=== PATIENT | male | born 1965 ===

== ENCOUNTER 2021-04-30 08:25 | Inpatient (IN) | payer MEDICAID ==
[~2021-04-30] VITALS: Ht 167.6 cm; Wt 121.9 kg
[2021-04-30] MEDS ORDERED: IPRATROPIUM BROM 0.5 MG/2.5ML INH SOL NEB ONE (10:00)
[2021-04-30] MEDS ORDERED: cefTRIAXone SOD 1,000 MG VL IM ONE (10:00)
[2021-04-30] MEDS ORDERED: ALBUTEROL SULF 2.5 MG/0.5ML(0.5%) NEB SOLN NEB ONE (10:00)
[2021-04-30] MEDS ORDERED: methylPREDNISolone SOD SUCC 125 MG/2 ML VL IM ONE (10:00)
[2021-04-30] MEDS ORDERED: cefTRIAXone 1GM/50ML D5W 50 ML IV ONE (11:00)
[2021-04-30] MEDS ORDERED: AZITHROMYCIN 500MG/ 250ML 250 ML IV ONE (11:00)
[2021-04-30] MEDS ORDERED: methylPREDNISolone SOD SUCC 125 MG/2 ML VL IV ONE (11:00)
[2021-04-30] MEDS ORDERED: DexAMETHasone SOD PHOS 10MG/1ML VIAL INJ IV ONE (11:15)
[2021-04-30 11:19] LABS: Basophils # (auto) 0 10 ^3/uL (0-0.2); Basophils % (auto) 0.3 % (0.0-2.0); Eosinophils # (auto) 0 10 ^3/uL (0-0.8); Hematocrit 42.5 % (41.0-53.0); Hemoglobin 14.6 g/dL (13.5-17.5); Lymphocytes # (auto) 1.5 10 ^3/uL (0.4-5.4); Lymphocytes % (auto) 14.6 % (10.0-50.0); Mean Corpuscular Hemoglobin 28.9 pg (28.0-32.0); Mean Corpuscular Hgb Conc. 34.2 g/dL (32.0-36.0); Mean Corpuscular Volume 84.3 fL (80.0-100.0); Monocytes # (auto) 0.7 10 ^3/uL (0-1.3); Monocytes % (auto) 6.5 % (0.0-12.0); Neutrophils # (auto) 8.3 10 ^3/uL (1.6-8.6); Neutrophils % (auto) 78.6 % (37.0-80.0); Red Blood Cells 5.04 10^6/uL (4.5-5.90); Red Cell Distribution Width 13.1 % (11.8-14.3); White Blood Cell 10.6 10^3/uL (4.4-10.8)
[2021-04-30] MEDS ORDERED: IPRATROPIUM BROM 0.5 MG/2.5ML INH SOL NEB PRN (11:30)
[2021-04-30] MEDS ORDERED: ALBUTEROL SULF 2.5 MG/0.5ML(0.5%) NEB SOLN NEB PRN (11:30)
[2021-04-30 11:36] LABS: Albumin 2.4 g/dL (3.4-5.0); Calcium 8.2 mg/dL (8.5-10.1); Potassium 3.6 mmol/L (3.5-5.1)
[2021-04-30 11:39] LABS: BUN/Creatinine Ratio 16.1; Bilirubin, Total 0.8 mg/dL (0.2-1.0); Lactic Acid w/Reflex 2.6 mmol/L (0.4-2.0); Total Protein 7.1 g/dL (6.4-8.2)
[2021-04-30] MEDS: SODIUM CHLORIDE 0.9% 1,000 ML IV SCH (12:20)
[2021-04-30 16:44] VITALS: BP 105/59
[2021-04-30 20:25] VITALS: BP 103/65
[2021-04-30] MEDS: methylPREDNISolone SOD SUCC 40 MG/ML VL IV SCH (21:44)
[2021-04-30] MEDS: BUDESONIDE (INHALATION) 180 MCG IH IN SCH (21:48)
[2021-04-30] MEDS: ALBUTEROL SULF HFA 90MCG INH 200DOSE IN PRN (21:48)
[2021-04-30 22:00] VITALS: BP 103/65
[2021-05-01 05:00] VITALS: BP 116/70
[2021-05-01 05:58] LABS: Basophils # (auto) 0 10 ^3/uL (0-0.2); Basophils % (auto) 0.3 % (0.0-2.0); Eosinophils # (auto) 0 10 ^3/uL (0-0.8); Hematocrit 40.1 % (41.0-53.0); Hemoglobin 13.8 g/dL (13.5-17.5); Lymphocytes # (auto) 0.6 10 ^3/uL (0.4-5.4); Lymphocytes % (auto) 6.4 % (10.0-50.0); Mean Corpuscular Hemoglobin 28.9 pg (28.0-32.0); Mean Corpuscular Hgb Conc. 34.3 g/dL (32.0-36.0); Mean Corpuscular Volume 84.3 fL (80.0-100.0); Monocytes # (auto) 0.5 10 ^3/uL (0-1.3); Monocytes % (auto) 4.7 % (0.0-12.0); Neutrophils # (auto) 8.9 10 ^3/uL (1.6-8.6); Neutrophils % (auto) 88.6 % (37.0-80.0); Red Blood Cells 4.75 10^6/uL (4.5-5.90); White Blood Cell 10.1 10^3/uL (4.4-10.8)
[2021-05-01 06:16] LABS: BUN/Creatinine Ratio 27.4; Calcium 7.9 mg/dL (8.5-10.1)
[2021-05-01] MEDS: SODIUM CHLORIDE 0.9% 1,000 ML IV SCH ×2 (06:44→17:05)
[2021-05-01 09:00] VITALS: BP 113/64
[2021-05-01] MEDS: cefTRIAXone 1GM/50ML D5W 50 ML IV SCH (10:02)
[2021-05-01] MEDS: methylPREDNISolone SOD SUCC 40 MG/ML VL IV SCH ×2 (10:02→22:00)
[2021-05-01] MEDS: ENOXAPARIN SOD 40 MG/0.4 ML SYRINGE SC SCH (10:03)
[2021-05-01] MEDS: ALBUTEROL SULF HFA 90MCG INH 200DOSE IN PRN ×2 (11:50→19:53)
[2021-05-01] MEDS: BUDESONIDE (INHALATION) 180 MCG IH IN SCH ×2 (11:50→19:52)
[2021-05-01] MEDS: AZITHROMYCIN 500MG/ 250ML 250 ML IV SCH (12:04)
[2021-05-01 13:00] VITALS: BP 110/71
[2021-05-01 17:00] VITALS: BP 112/67
[2021-05-02 05:41] VITALS: BP 113/65
[2021-05-02] MEDS: SODIUM CHLORIDE 0.9% 1,000 ML IV SCH ×2 (06:40→20:42)
[2021-05-02] MEDS: ALBUTEROL SULF HFA 90MCG INH 200DOSE IN PRN ×2 (07:43→21:46)
[2021-05-02] MEDS: BUDESONIDE (INHALATION) 180 MCG IH IN SCH ×2 (07:43→21:46)
[2021-05-02 09:00] VITALS: BP 111/59
[2021-05-02] MEDS: methylPREDNISolone SOD SUCC 40 MG/ML VL IV SCH ×2 (09:27→21:40)
[2021-05-02] MEDS: ENOXAPARIN SOD 40 MG/0.4 ML SYRINGE SC SCH (09:27)
[2021-05-02] MEDS: cefTRIAXone 1GM/50ML D5W 50 ML IV SCH (09:27)
[2021-05-02] MEDS: AZITHROMYCIN 500MG/ 250ML 250 ML IV SCH (11:05)
[2021-05-02 13:00] VITALS: BP 122/65
[2021-05-02 17:00] VITALS: BP 121/69
[2021-05-02 20:00] VITALS: BP 115/70
[2021-05-02 22:00] VITALS: BP 115/70
[2021-05-03 05:00] VITALS: BP 130/71
[2021-05-03] MEDS: ALBUTEROL SULF HFA 90MCG INH 200DOSE IN PRN ×2 (05:53→20:27)
[2021-05-03] MEDS: BUDESONIDE (INHALATION) 180 MCG IH IN SCH ×2 (05:53→20:27)
[2021-05-03 07:10] LABS: Potassium 4.3 mmol/L (3.5-5.1)
[2021-05-03 07:21] LABS: Albumin 2.1 g/dL (3.4-5.0); BUN/Creatinine Ratio 30.5; Bilirubin, Total 0.8 mg/dL (0.2-1.0); Calcium 7.8 mg/dL (8.5-10.1); Total Protein 5.9 g/dL (6.4-8.2)
[2021-05-03] MEDS: cefTRIAXone 1GM/50ML D5W 50 ML IV SCH (08:56)
[2021-05-03] MEDS: ENOXAPARIN SOD 40 MG/0.4 ML SYRINGE SC SCH ×2 (08:57→10:00)
[2021-05-03] MEDS: methylPREDNISolone SOD SUCC 40 MG/ML VL IV SCH ×2 (08:57→20:40)
[2021-05-03 09:00] VITALS: BP 114/69
[2021-05-03] MEDS: AZITHROMYCIN 500MG/ 250ML 250 ML IV SCH (10:28)
[2021-05-03] MEDS: SODIUM CHLORIDE 0.9% 1,000 ML IV SCH ×2 (12:06→18:26)
[2021-05-03 12:48] VITALS: BP 127/69
[2021-05-03 17:00] VITALS: BP 121/70
[2021-05-03 22:00] VITALS: BP 143/82
[2021-05-04 05:00] VITALS: BP 126/78
[2021-05-04] MEDS: BUDESONIDE (INHALATION) 180 MCG IH IN SCH ×2 (06:51→22:01)
[2021-05-04] MEDS: ALBUTEROL SULF HFA 90MCG INH 200DOSE IN PRN ×2 (06:51→22:01)
[2021-05-04 08:00] VITALS: BP 132/74
[2021-05-04 08:00] LABS: Basophils # (auto) 0 10 ^3/uL (0-0.2); Basophils % (auto) 0.1 % (0.0-2.0); Eosinophils # (auto) 0 10 ^3/uL (0-0.8); Hematocrit 39.4 % (41.0-53.0); Hemoglobin 13.1 g/dL (13.5-17.5); Lymphocytes # (auto) 0.8 10 ^3/uL (0.4-5.4); Lymphocytes % (auto) 4.4 % (10.0-50.0); Mean Corpuscular Hemoglobin 28.4 pg (28.0-32.0); Mean Corpuscular Hgb Conc. 33.2 g/dL (32.0-36.0); Mean Corpuscular Volume 85.4 fL (80.0-100.0); Monocytes # (auto) 0.8 10 ^3/uL (0-1.3); Monocytes % (auto) 4.5 % (0.0-12.0); Neutrophils # (auto) 16.8 10 ^3/uL (1.6-8.6); Red Blood Cells 4.62 10^6/uL (4.5-5.90); Red Cell Distribution Width 13.5 % (11.8-14.3); White Blood Cell 18.4 10^3/uL (4.4-10.8)
[2021-05-04 09:00] VITALS: BP 132/74
[2021-05-04] MEDS: ENOXAPARIN SOD 40 MG/0.4 ML SYRINGE SC SCH (09:12)
[2021-05-04] MEDS: cefTRIAXone 1GM/50ML D5W 50 ML IV SCH (09:12)
[2021-05-04] MEDS: AZITHROMYCIN 500MG/ 250ML 250 ML IV SCH (09:12)
[2021-05-04] MEDS: methylPREDNISolone SOD SUCC 40 MG/ML VL IV SCH ×2 (09:12→21:07)
[2021-05-04 12:30] VITALS: BP 134/59
[2021-05-04] MEDS ORDERED: ACETAMINOPHEN 325 MG TAB PO PRN (14:45)
[2021-05-04 17:00] VITALS: BP 131/70
[2021-05-04] MEDS: SODIUM CHLORIDE 0.9% 1,000 ML IV SCH (18:19)
[2021-05-04 22:00] VITALS: BP 137/70
[2021-05-05 04:54] VITALS: BP 128/75
[2021-05-05] MEDS: SODIUM CHLORIDE 0.9% 1,000 ML IV SCH ×2 (05:54→20:12)
[2021-05-05] MEDS: BUDESONIDE (INHALATION) 180 MCG IH IN SCH ×2 (05:59→20:29)
[2021-05-05] MEDS: ALBUTEROL SULF HFA 90MCG INH 200DOSE IN PRN ×2 (05:59→20:30)
[2021-05-05 07:11] LABS: Basophils # (auto) 0 10 ^3/uL (0-0.2); Basophils % (auto) 0.2 % (0.0-2.0); Eosinophils # (auto) 0 10 ^3/uL (0-0.8); Hematocrit 42.3 % (41.0-53.0); Lymphocytes # (auto) 0.5 10 ^3/uL (0.4-5.4); Lymphocytes % (auto) 2.9 % (10.0-50.0); Mean Corpuscular Hemoglobin 28.5 pg (28.0-32.0); Mean Corpuscular Hgb Conc. 33.2 g/dL (32.0-36.0); Monocytes # (auto) 0.5 10 ^3/uL (0-1.3); Neutrophils # (auto) 17.1 10 ^3/uL (1.6-8.6); Neutrophils % (auto) 93.9 % (37.0-80.0); Red Blood Cells 4.92 10^6/uL (4.5-5.90); Red Cell Distribution Width 13.5 % (11.8-14.3); White Blood Cell 18.2 10^3/uL (4.4-10.8)
[2021-05-05 09:00] VITALS: BP 128/68
[2021-05-05] MEDS: cefTRIAXone 1GM/50ML D5W 50 ML IV SCH (09:46)
[2021-05-05] MEDS: ENOXAPARIN SOD 40 MG/0.4 ML SYRINGE SC SCH (09:47)
[2021-05-05] MEDS: methylPREDNISolone SOD SUCC 40 MG/ML VL IV SCH ×2 (09:47→21:59)
[2021-05-05] MEDS: AZITHROMYCIN 500MG/ 250ML 250 ML IV SCH (10:58)
[2021-05-05 13:00] VITALS: BP 138/71
[2021-05-05 17:00] VITALS: BP 128/79
[2021-05-05 22:00] VITALS: BP 143/81
[2021-05-06 05:00] VITALS: BP 138/85
[2021-05-06] MEDS: ALBUTEROL SULF HFA 90MCG INH 200DOSE IN PRN ×2 (05:56→18:37)
[2021-05-06] MEDS: BUDESONIDE (INHALATION) 180 MCG IH IN SCH ×2 (05:56→18:37)
[2021-05-06 07:17] LABS: Basophils # (auto) 0 10 ^3/uL (0-0.2); Basophils % (auto) 0.1 % (0.0-2.0); Eosinophils # (auto) 0 10 ^3/uL (0-0.8); Hemoglobin 14.1 g/dL (13.5-17.5); Lymphocytes # (auto) 0.5 10 ^3/uL (0.4-5.4); Lymphocytes % (auto) 2.4 % (10.0-50.0); Mean Corpuscular Hemoglobin 28.1 pg (28.0-32.0); Mean Corpuscular Hgb Conc. 32.7 g/dL (32.0-36.0); Mean Corpuscular Volume 85.9 fL (80.0-100.0); Monocytes # (auto) 0.8 10 ^3/uL (0-1.3); Monocytes % (auto) 3.9 % (0.0-12.0); Neutrophils # (auto) 18.4 10 ^3/uL (1.6-8.6); Neutrophils % (auto) 93.6 % (37.0-80.0); Red Blood Cells 5.01 10^6/uL (4.5-5.90); Red Cell Distribution Width 13.6 % (11.8-14.3); White Blood Cell 19.6 10^3/uL (4.4-10.8)
[2021-05-06] MEDS: cefTRIAXone 1GM/50ML D5W 50 ML IV SCH (08:50)
[2021-05-06 08:52] VITALS: BP 134/66
[2021-05-06] MEDS: ENOXAPARIN SOD 40 MG/0.4 ML SYRINGE SC SCH (09:48)
[2021-05-06] MEDS: methylPREDNISolone SOD SUCC 40 MG/ML VL IV SCH (09:48)
[2021-05-06] MEDS ORDERED: REMDESIVIR PER PHARMACY 0 ML IV SCH (10:15)
[2021-05-06 11:04] LABS: Potassium 4.2 mmol/L (3.5-5.1)
[2021-05-06 11:17] VITALS: BP 134/66
[2021-05-06 11:17] LABS: Albumin 1.8 g/dL (3.4-5.0); Bilirubin, Total 1.6 mg/dL (0.2-1.0); Calcium 7.9 mg/dL (8.5-10.1); Total Protein 5.7 g/dL (6.4-8.2)
[2021-05-06] MEDS: AZITHROMYCIN 500MG/ 250ML 250 ML IV SCH (12:16)
[2021-05-06] MEDS: ASCORBIC ACID 1,000 MG TAB PO SCH (12:26)
[2021-05-06] MEDS: ZINC SULFATE 220mg CAP or TAB PO SCH (12:26)
[2021-05-06] MEDS: DexAMETHasone SOD PHOS 10MG/1ML VIAL INJ IV SCH (12:26)
[2021-05-06] MEDS: CHOLECALCIFEROL (VITD3) 2,000 UNIT CAP/TAB PO SCH (12:26)
[2021-05-06] MEDS: guaiFENesin-DM 100/10mg/5ml SYR PO PRN ×2 (12:26→17:58)
[2021-05-06 12:36] VITALS: BP 132/84
[2021-05-06] MEDS ORDERED: REMDESIVIR 200 MG in NS 210ml LOADING DOSE ADULT IV ONE (13:00)
[2021-05-06 16:51] VITALS: BP 122/86
[2021-05-06] MEDS ORDERED: BUDESONIDE (INHALATION) 180 MCG IH IN SCH (22:00)
[2021-05-07 05:29] VITALS: BP 136/87
[2021-05-07 07:02] LABS: Hematocrit 44.2 % (41.0-53.0); Hemoglobin 14.5 g/dL (13.5-17.5); Mean Corpuscular Hemoglobin 28.1 pg (28.0-32.0); Mean Corpuscular Hgb Conc. 32.9 g/dL (32.0-36.0); Mean Corpuscular Volume 85.5 fL (80.0-100.0); Red Blood Cells 5.16 10^6/uL (4.5-5.90); Red Cell Distribution Width 13.5 % (11.8-14.3); White Blood Cell 26.7 10^3/uL (4.4-10.8)
[2021-05-07 07:05] LABS: Basophils % (manual) 0 (0.0-2.0); Blast Cells 0; Eosinophils % (manual) 0 (0-7); Metamyelocytes % 0; Myelocytes % 0; Promyelocytes % 0; Reactive Lymphocytes 0
[2021-05-07 07:16] LABS: Potassium 4.2 mmol/L (3.5-5.1)
[2021-05-07 07:23] LABS: BUN/Creatinine Ratio 41.9; Bilirubin, Total 1.5 mg/dL (0.2-1.0); Calcium 7.9 mg/dL (8.5-10.1); Magnesium 3.4 mg/dL (1.6-2.6); Total Protein 6.1 g/dL (6.4-8.2)
[2021-05-07 07:36] LABS: Thyroid Stimulating Hormone 0.28 uIU/mL (0.358-3.74)
[2021-05-07] MEDS: BUDESONIDE (INHALATION) 180 MCG IH IN SCH ×2 (07:46→20:58)
[2021-05-07] MEDS: ALBUTEROL SULF HFA 90MCG INH 200DOSE IN PRN (07:46)
[2021-05-07 08:08] LABS: Band Neutrophils % (manual) 4; Lymphocytes % (manual) 3 (10.0-50.0); Monocytes % (manual) 5 (0-12)
[2021-05-07 08:39] VITALS: BP 141/89
[2021-05-07] MEDS: CHOLECALCIFEROL (VITD3) 2,000 UNIT CAP/TAB PO SCH (10:01)
[2021-05-07] MEDS: ASCORBIC ACID 1,000 MG TAB PO SCH (10:01)
[2021-05-07] MEDS: ZINC SULFATE 220mg CAP or TAB PO SCH (10:01)
[2021-05-07] MEDS: AZITHROMYCIN 500MG/ 250ML 250 ML IV SCH (10:01)
[2021-05-07] MEDS: cefTRIAXone 1GM/50ML D5W 50 ML IV SCH (10:01)
[2021-05-07] MEDS: DexAMETHasone SOD PHOS 10MG/1ML VIAL INJ IV SCH (10:01)
[2021-05-07] MEDS: guaiFENesin-DM 100/10mg/5ml SYR PO PRN ×3 (10:02→21:56)
[2021-05-07] MEDS: ENOXAPARIN SOD 40 MG/0.4 ML SYRINGE SC SCH (10:02)
[2021-05-07 13:00] VITALS: BP 123/76
[2021-05-07] MEDS: REMDESIVIR 100mg 100 MG in SODIUM CHL 0.9% 230 ML IV SCH (16:54)
[2021-05-07 16:58] VITALS: BP 125/70
[2021-05-07 22:00] VITALS: BP 118/73
[2021-05-08 05:00] VITALS: BP 128/69
[2021-05-08 07:20] LABS: Hematocrit 43.1 % (41.0-53.0); Hemoglobin 14.4 g/dL (13.5-17.5); Mean Corpuscular Hemoglobin 28.5 pg (28.0-32.0); Mean Corpuscular Hgb Conc. 33.3 g/dL (32.0-36.0); Mean Corpuscular Volume 85.7 fL (80.0-100.0); Red Blood Cells 5.03 10^6/uL (4.5-5.90); Red Cell Distribution Width 13.5 % (11.8-14.3); White Blood Cell 26.4 10^3/uL (4.4-10.8)
[2021-05-08 07:29] LABS: Basophils % (manual) 0 (0.0-2.0); Blast Cells 0; Eosinophils % (manual) 0 (0-7); Metamyelocytes % 0; Myelocytes % 0; Promyelocytes % 0; Reactive Lymphocytes 0
[2021-05-08 09:00] VITALS: BP 105/69
[2021-05-08] MEDS: DexAMETHasone SOD PHOS 10MG/1ML VIAL INJ IV SCH (09:20)
[2021-05-08] MEDS: cefTRIAXone 1GM/50ML D5W 50 ML IV SCH (09:20)
[2021-05-08] MEDS: AZITHROMYCIN 500MG/ 250ML 250 ML IV SCH (09:21)
[2021-05-08] MEDS: ASCORBIC ACID 1,000 MG TAB PO SCH (09:21)
[2021-05-08] MEDS: CHOLECALCIFEROL (VITD3) 2,000 UNIT CAP/TAB PO SCH (09:21)
[2021-05-08] MEDS: ZINC SULFATE 220mg CAP or TAB PO SCH (09:21)
[2021-05-08] MEDS: ENOXAPARIN SOD 40 MG/0.4 ML SYRINGE SC SCH (09:22)
[2021-05-08] MEDS: guaiFENesin-DM 100/10mg/5ml SYR PO PRN ×3 (09:22→20:11)
[2021-05-08] MEDS: ALBUTEROL SULF HFA 90MCG INH 200DOSE IN PRN ×2 (10:13→22:42)
[2021-05-08] MEDS: BUDESONIDE (INHALATION) 180 MCG IH IN SCH ×2 (10:13→22:42)
[2021-05-08 10:58] LABS: Band Neutrophils % (manual) 3; Lymphocytes % (manual) 5 (10.0-50.0); Monocytes % (manual) 4 (0-12)
[2021-05-08 13:00] VITALS: BP 106/66
[2021-05-08] MEDS: REMDESIVIR 100mg 100 MG in SODIUM CHL 0.9% 230 ML IV SCH (13:26)
[2021-05-08 17:00] VITALS: BP 108/73
[2021-05-08 22:00] VITALS: BP 105/75
[2021-05-09 05:00] VITALS: BP 117/60
[2021-05-09] MEDS: guaiFENesin-DM 100/10mg/5ml SYR PO PRN ×2 (05:36→12:21)
[2021-05-09 05:50] LABS: Basophils # (auto) 0.3 10 ^3/uL (0-0.2); Eosinophils # (auto) 0 10 ^3/uL (0-0.8); Eosinophils % (auto) 0.2 % (0.0-7.0); Hematocrit 43.4 % (41.0-53.0); Hemoglobin 14.3 g/dL (13.5-17.5); Lymphocytes # (auto) 0.9 10 ^3/uL (0.4-5.4); Lymphocytes % (auto) 3.1 % (10.0-50.0); Mean Corpuscular Hemoglobin 28.6 pg (28.0-32.0); Mean Corpuscular Volume 86.7 fL (80.0-100.0); Monocytes # (auto) 0.9 10 ^3/uL (0-1.3); Monocytes % (auto) 3.3 % (0.0-12.0); Neutrophils # (auto) 25.8 10 ^3/uL (1.6-8.6); Neutrophils % (auto) 92.4 % (37.0-80.0); Nucleated Red Blood Cells % 0.1 %; Red Blood Cells 5.01 10^6/uL (4.5-5.90); Red Cell Distribution Width 13.8 % (11.8-14.3)
[2021-05-09] MEDS: BUDESONIDE (INHALATION) 180 MCG IH IN SCH ×2 (07:13→23:24)
[2021-05-09] MEDS: ALBUTEROL SULF HFA 90MCG INH 200DOSE IN PRN (07:13)
[2021-05-09 09:00] VITALS: BP 130/71
[2021-05-09] MEDS: cefTRIAXone 1GM/50ML D5W 50 ML IV SCH (11:20)
[2021-05-09] MEDS: ENOXAPARIN SOD 40 MG/0.4 ML SYRINGE SC SCH (11:22)
[2021-05-09] MEDS: DexAMETHasone SOD PHOS 10MG/1ML VIAL INJ IV SCH (11:22)
[2021-05-09] MEDS: ASCORBIC ACID 1,000 MG TAB PO SCH (11:22)
[2021-05-09] MEDS: CHOLECALCIFEROL (VITD3) 2,000 UNIT CAP/TAB PO SCH (11:23)
[2021-05-09] MEDS: ZINC SULFATE 220mg CAP or TAB PO SCH (11:23)
[2021-05-09] MEDS: METOPROLOL TARTRATE 1MG/1ML-5ML VIAL IV PRN ×2 (11:26→20:10)
[2021-05-09] MEDS ORDERED: METOPROLOL TARTRATE 1MG/1ML-5ML VIAL IV ONE (12:00)
[2021-05-09] MEDS: AZITHROMYCIN 500MG/ 250ML 250 ML IV SCH (12:28)
[2021-05-09 12:48] VITALS: BP 128/72
[2021-05-09] MEDS: REMDESIVIR 100mg 100 MG in SODIUM CHL 0.9% 230 ML IV SCH (14:53)
[2021-05-09 16:00] VITALS: BP 94/59
[2021-05-09] MEDS: SALINE 0.65 % NASAL SPRAY 45ML BOTTLE EACHNOSTRI SCH ×2 (18:06→22:35)
[2021-05-09] MEDS ORDERED: SUCCINYLCHOLINE CHLORIDE 20 MG/ML 10ML VIAL IV ONE (21:13)
[2021-05-09] MEDS ORDERED: ETOMIDATE (2MG/ML) 20ML VIAL IV ONE (21:13)
[2021-05-09 22:14] VITALS: BP 97/70
[2021-05-10 05:00] VITALS: BP 101/77
[2021-05-10] MEDS: METOPROLOL TARTRATE 1MG/1ML-5ML VIAL IV PRN (06:17)
[2021-05-10] MEDS: SALINE 0.65 % NASAL SPRAY 45ML BOTTLE EACHNOSTRI SCH ×4 (06:17→21:44)
[2021-05-10 08:22] LABS: Albumin 1.5 g/dL (3.4-5.0); Anion Gap 14 (5-15); Blood Urea Nitrogen 38 mg/dL (7-18); Calcium 7.6 mg/dL (8.5-10.1); Carbon Dioxide 20 mmol/L (21-32); Chloride 108 mmol/L (98-107); Glucose 96 mg/dL (74-106); Potassium 4.5 mmol/L (3.5-5.1); Sodium 142 mmol/L (136-145)
[2021-05-10 08:26] LABS: Alanine Aminotransferase 71 U/L (16-61); Alkaline Phosphatase 147 U/L (45-117); Aspartate Aminotransferase 70 U/L (15-37); BUN/Creatinine Ratio 48.7; Bilirubin, Total 1.2 mg/dL (0.2-1.0); GFR African American 132 mL/min; GFR Non-African American 109 mL/min; Total Protein 5.2 g/dL (6.4-8.2)
[2021-05-10 09:00] VITALS: BP 109/72
[2021-05-10] MEDS: CHOLECALCIFEROL (VITD3) 2,000 UNIT CAP/TAB PO SCH (10:00)
[2021-05-10] MEDS: cefTRIAXone 1GM/50ML D5W 50 ML IV SCH (10:39)
[2021-05-10] MEDS: DexAMETHasone SOD PHOS 10MG/1ML VIAL INJ IV SCH (10:39)
[2021-05-10] MEDS: AZITHROMYCIN 500MG/ 250ML 250 ML IV SCH (10:40)
[2021-05-10] MEDS: ENOXAPARIN SOD 40 MG/0.4 ML SYRINGE SC SCH (10:40)
[2021-05-10] MEDS: ASCORBIC ACID 1,000 MG TAB PO SCH (10:54)
[2021-05-10] MEDS: ZINC SULFATE 220mg CAP or TAB PO SCH (10:54)
[2021-05-10] MEDS: BUDESONIDE (INHALATION) 180 MCG IH IN SCH ×2 (15:14→21:53)
[2021-05-10] MEDS: ALBUTEROL SULF HFA 90MCG INH 200DOSE IN PRN ×2 (15:15→21:53)
[2021-05-10] MEDS: REMDESIVIR 100mg 100 MG in SODIUM CHL 0.9% 230 ML IV SCH (15:42)
[2021-05-10 16:24] VITALS: BP 101/68
[2021-05-10 22:00] VITALS: BP 96/59
[2021-05-10 22:40] VITALS: BP 121/60
[2021-05-10 23:08] LABS: Basophils # (auto) 0.1 10 ^3/uL (0-0.2); Basophils % (auto) 0.2 % (0.0-2.0); Eosinophils # (auto) 0 10 ^3/uL (0-0.8); Hematocrit 44.1 % (41.0-53.0); Hemoglobin 14.1 g/dL (13.5-17.5); Lymphocytes # (auto) 0.5 10 ^3/uL (0.4-5.4); Lymphocytes % (auto) 1.7 % (10.0-50.0); Mean Corpuscular Hemoglobin 27.7 pg (28.0-32.0); Mean Corpuscular Volume 86.5 fL (80.0-100.0); Monocytes # (auto) 0.7 10 ^3/uL (0-1.3); Monocytes % (auto) 2.7 % (0.0-12.0); Neutrophils # (auto) 24.8 10 ^3/uL (1.6-8.6); Neutrophils % (auto) 95.4 % (37.0-80.0); Red Cell Distribution Width 13.6 % (11.8-14.3)
[2021-05-11] VITALS (9 sets, daily range): BP systolic 100–139; BP diastolic 53–70
[2021-05-11] MEDS: METOPROLOL TARTRATE 1MG/1ML-5ML VIAL IV PRN (05:24)
[2021-05-11] MEDS: SALINE 0.65 % NASAL SPRAY 45ML BOTTLE EACHNOSTRI SCH ×4 (06:27→22:00)
[2021-05-11] MEDS: ALBUTEROL SULF HFA 90MCG INH 200DOSE IN PRN ×2 (08:32→21:05)
[2021-05-11] MEDS: BUDESONIDE (INHALATION) 180 MCG IH IN SCH ×2 (08:33→21:04)
[2021-05-11] MEDS: AZITHROMYCIN 500MG/ 250ML 250 ML IV SCH (09:05)
[2021-05-11] MEDS: cefTRIAXone 1GM/50ML D5W 50 ML IV SCH (09:05)
[2021-05-11] MEDS: CHOLECALCIFEROL (VITD3) 2,000 UNIT CAP/TAB PO SCH (09:06)
[2021-05-11] MEDS: ASCORBIC ACID 1,000 MG TAB PO SCH (09:06)
[2021-05-11] MEDS: ZINC SULFATE 220mg CAP or TAB PO SCH (09:06)
[2021-05-11] MEDS: DexAMETHasone SOD PHOS 10MG/1ML VIAL INJ IV SCH (09:06)
[2021-05-11] MEDS: ENOXAPARIN SOD 40 MG/0.4 ML SYRINGE SC SCH (10:00)
[2021-05-11] MEDS: Ensure HIGH Protein Chocolate 8oz Bottle PO SCH (18:15)
[2021-05-12] VITALS (76 sets, daily range): BP systolic 66–164; BP diastolic 26–74
[2021-05-12] MEDS ORDERED: SUCCINYLCHOLINE CHLORIDE 20 MG/ML 10ML VIAL IV ONE ×2 (05:33→06:30)
[2021-05-12] MEDS ORDERED: ETOMIDATE (2MG/ML) 20ML VIAL IV ONE ×2 (05:33→06:30)
[2021-05-12] MEDS ORDERED: MIDAZOLAM DRIP 50 mg/50mL 50 ML IV ONE ×2 (05:49→06:13)
[2021-05-12] MEDS: MIDAZOLAM DRIP 50 mg/50mL 50 ML IV SCH ×3 (06:15→19:01)
[2021-05-12] MEDS ORDERED: fentaNYL Drip 2500mCg/250mlNS 250 ML IV ONE (06:22)
[2021-05-12] MEDS: fentaNYL Drip 2500mCg/250mlNS 250 ML IV SCH ×2 (06:30→14:39)
[2021-05-12] MEDS ORDERED: NOREPINEPHRINE 8 MG/250ML KIT 250 ML IV ONE (06:31)
[2021-05-12] MEDS ORDERED: PROPOFOL 100 ML IV ONE (06:57)
[2021-05-12] MEDS: PROPOFOL 100 ML IV SCH ×3 (07:00→17:14)
[2021-05-12] MEDS: PHENYLEPHRINE INJ 80 MG in SODIUM CHL 0.9% 242 ML IV SCH ×2 (07:30→13:14)
[2021-05-12] MEDS: Ensure HIGH Protein Chocolate 8oz Bottle PO SCH ×3 (08:00→17:13)
[2021-05-12] MEDS: VASOPRESSIN 50 UNITS in D5W 5% 247.5 ML IV SCH (08:30)
[2021-05-12] MEDS ORDERED: SODIUM BICARBONATE 8.4% INJ 50ML SYRINGE ONE (08:33)
[2021-05-12] MEDS ORDERED: SODIUM BICARBONATE 8.4 % INJ 50ML VIAL IV ONE ×3 (08:45→11:00)
[2021-05-12] MEDS: cefTRIAXone 1GM/50ML D5W 50 ML IV SCH (08:46)
[2021-05-12] MEDS ORDERED: ROCURONIUM 10MG/ML 10ML VIAL IV ONE (09:00)
[2021-05-12] MEDS: ROCURONIUM 10MG/ML 10ML VIAL IV PRN (09:55)
[2021-05-12] MEDS: ATRACURIUM BESYLATE 1,000 MG in D5W 5% 150 ML IV SCH (09:55)
[2021-05-12] MEDS: ACETAMINOPHEN 650 mg PER 20.3 mL UD GT PRN (09:57)
[2021-05-12] MEDS: AZITHROMYCIN 500MG/ 250ML 250 ML IV SCH (09:58)
[2021-05-12] MEDS: ASCORBIC ACID 1,000 MG TAB PO SCH (09:58)
[2021-05-12] MEDS: DexAMETHasone SOD PHOS 10MG/1ML VIAL INJ IV SCH (09:58)
[2021-05-12] MEDS: ZINC SULFATE 220mg CAP or TAB PO SCH (09:58)
[2021-05-12] MEDS: ENOXAPARIN SOD 80 MG/0.8ML SYRINGE SC SCH ×2 (09:59→22:00)
[2021-05-12] MEDS: CHOLECALCIFEROL (VITD3) 2,000 UNIT CAP/TAB PO SCH (09:59)
[2021-05-12] MEDS: BUDESONIDE (INHALATION) 0.5 MG/2 ML NEB NEB SCH ×2 (10:28→22:10)
[2021-05-12] MEDS: NOREPINEPHRINE 8 MG/250ML KIT 250 ML IV SCH (10:59)
[2021-05-12] MEDS: ALBUTEROL SULF 2.5 MG/0.5ML(0.5%) NEB SOLN NEB PRN ×2 (11:08→22:10)
[2021-05-12] MEDS: SALINE 0.65 % NASAL SPRAY 45ML BOTTLE EACHNOSTRI SCH ×3 (11:24→22:00)
[2021-05-12] MEDS ORDERED: VANCOMYCIN PER PHARMACY 0 MG IV SCH (12:30)
[2021-05-12] MEDS: EPINEPHrine HCL 250 ML IV SCH (12:30)
[2021-05-12] MEDS: VANCOMYCIN 1GM/250ML 250 ML IV SCH ×2 (13:33→22:00)
[2021-05-12] MEDS ORDERED: ALBUTEROL SULF 2.5 MG/0.5ML(0.5%) NEB SOLN NEB SCH (14:00)
[2021-05-12] MEDS: SODIUM CHLORIDE 0.9% 1,000 ML IV SCH (15:49)
[2021-05-12] MEDS: PIPERACILLIN-TAZOB 3.375GM 100 ML IV SCH (17:14)
[2021-05-13] VITALS (74 sets, daily range): BP systolic 61–177; BP diastolic 28–96
[2021-05-13] MEDS: SODIUM CHLORIDE 0.9% 1,000 ML IV SCH ×2 (04:15→15:19)
[2021-05-13] MEDS: PIPERACILLIN-TAZOB 3.375GM 100 ML IV SCH ×2 (06:00)
[2021-05-13] MEDS: SALINE 0.65 % NASAL SPRAY 45ML BOTTLE EACHNOSTRI SCH ×2 (06:00→12:00)
[2021-05-13] MEDS: ALBUTEROL SULF 2.5 MG/0.5ML(0.5%) NEB SOLN NEB PRN ×2 (06:46→19:29)
[2021-05-13] MEDS: BUDESONIDE (INHALATION) 0.5 MG/2 ML NEB NEB SCH ×2 (06:46→19:29)
[2021-05-13] MEDS: ACETAMINOPHEN 650 mg PER 20.3 mL UD GT PRN ×2 (07:36→16:40)
[2021-05-13] MEDS: VANCOMYCIN 1GM/250ML 250 ML IV SCH (07:40)
[2021-05-13] MEDS: MIDAZOLAM DRIP 50 mg/50mL 50 ML IV SCH ×3 (07:52→14:57)
[2021-05-13] MEDS: Ensure HIGH Protein Chocolate 8oz Bottle PO SCH ×2 (08:00→12:00)
[2021-05-13] MEDS: VASOPRESSIN 50 UNITS in D5W 5% 247.5 ML IV SCH (08:30)
[2021-05-13] MEDS: ATRACURIUM BESYLATE 1,000 MG in D5W 5% 150 ML IV SCH (09:00)
[2021-05-13] MEDS: PROPOFOL 100 ML IV SCH ×2 (09:14→14:44)
[2021-05-13 09:24] LABS: Sodium 144 mmol/L (136-145)
[2021-05-13 09:25] LABS: Anion Gap 11 (5-15); BUN/Creatinine Ratio 27.4; Blood Urea Nitrogen 54 mg/dL (7-18); Calcium 7.2 mg/dL (8.5-10.1); Carbon Dioxide 24 mmol/L (21-32); Chloride 109 mmol/L (98-107); GFR African American 45 mL/min; GFR Non-African American 37 mL/min; Glucose 214 mg/dL (74-106)
[2021-05-13 09:28] LABS: Hemoglobin 13.2 g/dL (13.5-17.5)
[2021-05-13 09:33] LABS: Hematocrit 41.8 % (41.0-53.0); Mean Corpuscular Hemoglobin 27.9 pg (28.0-32.0); Mean Corpuscular Hgb Conc. 31.6 g/dL (32.0-36.0); Mean Corpuscular Volume 88.4 fL (80.0-100.0); Red Blood Cells 4.73 10^6/uL (4.5-5.90); Red Cell Distribution Width 13.6 % (11.8-14.3)
[2021-05-13 09:45] LABS: Potassium 5.6 mmol/L (3.5-5.1)
[2021-05-13 09:54] LABS: White Blood Cell 46.3 10^3/uL (4.4-10.8)
[2021-05-13 09:56] LABS: Basophils % (manual) 0 (0.0-2.0); Blast Cells 0; Eosinophils % (manual) 0 (0-7); Metamyelocytes % 0; Myelocytes % 0; Promyelocytes % 0; Reactive Lymphocytes 0
[2021-05-13] MEDS: ASCORBIC ACID 1,000 MG TAB PO SCH (10:00)
[2021-05-13] MEDS ORDERED: SODIUM ZIRCONIUM CYCL 10 GM PAK PO ONE (10:15)
[2021-05-13] MEDS ORDERED: DEXTROSE (50%) 50ML SYRG IV ONE (10:15)
[2021-05-13] MEDS ORDERED: InsuLIN REG 1unit/0.01ml Soln (100units/ml) IV ONE (10:15)
[2021-05-13] MEDS: MEROPENEM 1GM IVPB 100 ML IV SCH (10:40)
[2021-05-13] MEDS: DexAMETHasone SOD PHOS 10MG/1ML VIAL INJ IV SCH (10:41)
[2021-05-13] MEDS: ZINC SULFATE 220mg CAP or TAB PO SCH (10:41)
[2021-05-13] MEDS: ENOXAPARIN SOD 80 MG/0.8ML SYRINGE SC SCH (10:42)
[2021-05-13 11:10] LABS: Band Neutrophils % (manual) 1; Lymphocytes % (manual) 2 (10.0-50.0); Monocytes % (manual) 4 (0-12)
[2021-05-13] MEDS: NOREPINEPHRINE 8 MG/250ML KIT 250 ML IV SCH ×2 (11:30→16:08)
[2021-05-13] MEDS: PHENYLEPHRINE INJ 80 MG in SODIUM CHL 0.9% 242 ML IV SCH (12:26)
[2021-05-13] MEDS: EPINEPHrine HCL 250 ML IV SCH (12:30)
[2021-05-13] MEDS: fentaNYL Drip 2500mCg/250mlNS 250 ML IV SCH (15:18)
[2021-05-13] MEDS ORDERED: PANTOPRAZOLE 40 MG TAB PO ONE (15:45)
[2021-05-13] MEDS ORDERED: PANTOPRAZOLE 40 MG/10 ML VIAL INJ IV ONE (16:00)
[2021-05-14] VITALS (69 sets, daily range): BP systolic 60–154; BP diastolic 29–86
[2021-05-14] MEDS: BUDESONIDE (INHALATION) 0.5 MG/2 ML NEB NEB SCH ×2 (06:37→22:29)
[2021-05-14] MEDS: ALBUTEROL SULF 2.5 MG/0.5ML(0.5%) NEB SOLN NEB PRN ×2 (06:37→22:29)
[2021-05-14] MEDS: MIDAZOLAM DRIP 50 mg/50mL 50 ML IV SCH ×3 (07:31→14:48)
[2021-05-14] MEDS: PHENYLEPHRINE INJ 80 MG in SODIUM CHL 0.9% 242 ML IV SCH (07:44)
[2021-05-14] MEDS: VASOPRESSIN 50 UNITS in D5W 5% 247.5 ML IV SCH (08:30)
[2021-05-14] MEDS: ATRACURIUM BESYLATE 1,000 MG in D5W 5% 150 ML IV SCH (09:00)
[2021-05-14] MEDS ORDERED: PANTOPRAZOLE 40 MG TAB PO SCH (10:00)
[2021-05-14] MEDS: CHOLECALCIFEROL (VITD3) 2,000 UNIT CAP/TAB PO SCH ×2 (10:00→10:31)
[2021-05-14] MEDS: DexAMETHasone SOD PHOS 10MG/1ML VIAL INJ IV SCH (10:28)
[2021-05-14] MEDS: ZINC SULFATE 220mg CAP or TAB PO SCH (10:29)
[2021-05-14] MEDS: PANTOPRAZOLE 40 MG/10 ML VIAL INJ IV SCH (10:29)
[2021-05-14] MEDS: ASCORBIC ACID 1,000 MG TAB PO SCH (10:31)
[2021-05-14 11:02] LABS: BUN/Creatinine Ratio 25.3; Calcium 7.1 mg/dL (8.5-10.1); Potassium 4.9 mmol/L (3.5-5.1)
[2021-05-14] MEDS ORDERED: DEXTROSE (50%) 50ML SYRG IV PRN (12:15)
[2021-05-14] MEDS: MEROPENEM 1GM IVPB 100 ML IV SCH ×3 (12:28→23:14)
[2021-05-14] MEDS: EPINEPHrine HCL 250 ML IV SCH (12:30)
[2021-05-14] MEDS: InsuLIN REG 1unit/0.01ml Soln (100units/ml) SC SCH ×3 (12:46→23:21)
[2021-05-14] MEDS: fentaNYL Drip 2500mCg/250mlNS 250 ML IV SCH (14:45)
[2021-05-14] MEDS: NOREPINEPHRINE BITARTRATE 16 MG in SODIUM CHL 0.9% 234 ML IV SCH (15:00)
[2021-05-14] MEDS: VANCOMYCIN 1GM/250ML 250 ML IV SCH (16:07)
[2021-05-14] MEDS: SOD CHL 0.45% 1,000 ML IV SCH ×2 (16:15→20:45)
[2021-05-14] MEDS: ACETAMINOPHEN 650 mg PER 20.3 mL UD GT PRN ×2 (16:32→16:35)
[2021-05-14] MEDS: ACCU-CHEK COMFORT CURVE STRIP VI SCH ×2 (17:51→23:21)
[2021-05-14] MEDS: DOPamine 1600MCG/ML D5W 250 ML IV SCH (18:14)
[2021-05-14] MEDS: PROPOFOL 100 ML IV SCH (19:03)
[2021-05-14 19:34] LABS: Hematocrit 35.7 % (41.0-53.0); Hemoglobin 11.5 g/dL (13.5-17.5); Mean Corpuscular Hgb Conc. 32.2 g/dL (32.0-36.0)
[2021-05-14 19:35] LABS: Mean Corpuscular Hemoglobin 28.3 pg (28.0-32.0); Red Blood Cells 4.06 10^6/uL (4.5-5.90); Red Cell Distribution Width 13.5 % (11.8-14.3)
[2021-05-14 19:47] LABS: White Blood Cell 33.4 10^3/uL (4.4-10.8)
[2021-05-14 19:48] LABS: Basophils % (manual) 0 (0.0-2.0); Blast Cells 0; Eosinophils % (manual) 0 (0-7); Promyelocytes % 0; Reactive Lymphocytes 0
[2021-05-14 21:25] LABS: Band Neutrophils % (manual) 1; Lymphocytes % (manual) 3 (10.0-50.0); Metamyelocytes % 1; Monocytes % (manual) 4 (0-12); Myelocytes % 1
[2021-05-14] MEDS: HEPARIN DRIP/D5W 100UNITS/ML 250 ML IV SCH (22:08)
[2021-05-14 23:39] LABS: Anion Gap 6 (5-15); BUN/Creatinine Ratio 26.8; Blood Urea Nitrogen 45 mg/dL (7-18); Calcium 6.9 mg/dL (8.5-10.1); Carbon Dioxide 22 mmol/L (21-32); Chloride 116 mmol/L (98-107); GFR African American 54 mL/min; GFR Non-African American 45 mL/min; Glucose 194 mg/dL (74-106); Sodium 144 mmol/L (136-145)
[2021-05-14 23:50] LABS: Potassium 5.8 mmol/L (3.5-5.1)
[2021-05-15] VITALS (90 sets, daily range): BP systolic 95–137; BP diastolic 54–92
[2021-05-15 02:15] LABS: Hemoglobin 10.8 g/dL (13.5-17.5)
[2021-05-15 02:17] LABS: Hematocrit 32.6 % (41.0-53.0); Mean Corpuscular Hemoglobin 29.4 pg (28.0-32.0); Mean Corpuscular Hgb Conc. 33.2 g/dL (32.0-36.0); Mean Corpuscular Volume 88.7 fL (80.0-100.0); Red Blood Cells 3.68 10^6/uL (4.5-5.90); Red Cell Distribution Width 13.6 % (11.8-14.3)
[2021-05-15 02:41] LABS: White Blood Cell 31.2 10^3/uL (4.4-10.8)
[2021-05-15 02:43] LABS: Basophils % (manual) 0 (0.0-2.0); Blast Cells 0; Eosinophils % (manual) 0 (0-7); Metamyelocytes % 0; Monocytes % (manual) 0 (0-12); Myelocytes % 0; Promyelocytes % 0; Reactive Lymphocytes 0
[2021-05-15 02:44] LABS: INR 1.13 (0.9-1.15)
[2021-05-15 02:52] LABS: Partial Thromboplastin Time 37.1 sec (23.6-33.0)
[2021-05-15 04:04] LABS: Mean Corpuscular Hgb Conc. 32.3 g/dL (32.0-36.0)
[2021-05-15 04:06] LABS: Hematocrit 32.9 % (41.0-53.0); Hemoglobin 10.6 g/dL (13.5-17.5); Mean Corpuscular Hemoglobin 29.3 pg (28.0-32.0); Mean Corpuscular Volume 90.8 fL (80.0-100.0); Red Blood Cells 3.62 10^6/uL (4.5-5.90); Red Cell Distribution Width 14.2 % (11.8-14.3)
[2021-05-15 04:10] LABS: Band Neutrophils % (manual) 9; Lymphocytes % (manual) 1 (10.0-50.0)
[2021-05-15 04:24] LABS: White Blood Cell 30.4 10^3/uL (4.4-10.8)
[2021-05-15 04:25] LABS: Anion Gap 8 (5-15); Basophils % (manual) 0 (0.0-2.0); Blast Cells 0; Blood Urea Nitrogen 44 mg/dL (7-18); Calcium 7.1 mg/dL (8.5-10.1); Carbon Dioxide 22 mmol/L (21-32); Chloride 116 mmol/L (98-107); Eosinophils % (manual) 0 (0-7); GFR African American 56 mL/min; GFR Non-African American 47 mL/min; Glucose 169 mg/dL (74-106); Metamyelocytes % 0; Myelocytes % 0; Promyelocytes % 0; Reactive Lymphocytes 0; Sodium 146 mmol/L (136-145)
[2021-05-15] MEDS: InsuLIN REG 1unit/0.01ml Soln (100units/ml) SC SCH ×3 (05:51→17:45)
[2021-05-15] MEDS: ACCU-CHEK COMFORT CURVE STRIP VI SCH ×3 (05:51→17:31)
[2021-05-15] MEDS ORDERED: ALBUTEROL SULF 2.5 MG/0.5ML(0.5%) NEB SOLN NEB ONE ×2 (06:30→09:30)
[2021-05-15] MEDS ORDERED: SODIUM ZIRCONIUM CYCL 10 GM PAK PO ONE ×2 (06:30→09:45)
[2021-05-15] MEDS: VASOPRESSIN 50 UNITS in D5W 5% 247.5 ML IV SCH (07:55)
[2021-05-15] MEDS: ATRACURIUM BESYLATE 1,000 MG in D5W 5% 150 ML IV SCH (07:55)
[2021-05-15] MEDS: SOD CHL 0.45% 1,000 ML IV SCH (07:55)
[2021-05-15 07:59] LABS: Band Neutrophils % (manual) 1; Lymphocytes % (manual) 3 (10.0-50.0); Monocytes % (manual) 1 (0-12)
[2021-05-15] MEDS: VANCOMYCIN 1GM/250ML 250 ML IV SCH (08:00)
[2021-05-15 09:34] LABS: INR 1.1 (0.9-1.15); Partial Thromboplastin Time 60.9 sec (23.6-33.0)
[2021-05-15] MEDS: BUDESONIDE (INHALATION) 0.5 MG/2 ML NEB NEB SCH ×2 (10:00→22:34)
[2021-05-15] MEDS: DexAMETHasone SOD PHOS 10MG/1ML VIAL INJ IV SCH (10:24)
[2021-05-15] MEDS: CHOLECALCIFEROL (VITD3) 2,000 UNIT CAP/TAB PO SCH (10:24)
[2021-05-15] MEDS: ZINC SULFATE 220mg CAP or TAB PO SCH (10:24)
[2021-05-15] MEDS: PANTOPRAZOLE 40 MG/10 ML VIAL INJ IV SCH (10:24)
[2021-05-15] MEDS: ASCORBIC ACID 1,000 MG TAB PO SCH (10:24)
[2021-05-15] MEDS: SODIUM BICARBONATE 50ML VIAL 100 ML in SOD CHL 0.45% 1,000 ML IV SCH ×2 (10:30→17:45)
[2021-05-15] MEDS: SODIUM ZIRCONIUM CYCL 10 GM PAK GT SCH ×2 (13:13→17:45)
[2021-05-15] MEDS: NOREPINEPHRINE BITARTRATE 16 MG in SODIUM CHL 0.9% 234 ML IV SCH (13:13)
[2021-05-15] MEDS: EPINEPHrine HCL 250 ML IV SCH (13:19)
[2021-05-15] MEDS: MEROPENEM 1GM IVPB 100 ML IV SCH (13:20)
[2021-05-15] MEDS: HEPARIN DRIP/D5W 100UNITS/ML 250 ML IV SCH ×2 (13:45→16:27)
[2021-05-15] MEDS: DOPamine 1600MCG/ML D5W 250 ML IV SCH (14:51)
[2021-05-15] MEDS: ALBUTEROL SULF 2.5 MG/0.5ML(0.5%) NEB SOLN NEB PRN (15:06)
[2021-05-15 16:03] LABS: INR 1.1 (0.9-1.15)
[2021-05-15 16:11] LABS: Partial Thromboplastin Time 78.7 sec (23.6-33.0)
[2021-05-15 23:22] LABS: INR 1.09 (0.9-1.15); Partial Thromboplastin Time 24.5 sec (23.6-33.0)
[2021-05-16] VITALS (92 sets, daily range): BP systolic 101–132; BP diastolic 51–77
[2021-05-16] MEDS: MEROPENEM 1GM IVPB 100 ML IV SCH ×2 (00:47→12:00)
[2021-05-16] MEDS: InsuLIN REG 1unit/0.01ml Soln (100units/ml) SC SCH ×4 (00:48→18:00)
[2021-05-16] MEDS: ACCU-CHEK COMFORT CURVE STRIP VI SCH ×4 (00:48→18:00)
[2021-05-16 01:49] LABS: INR 1.1 (0.9-1.15); Partial Thromboplastin Time 31.9 sec (23.6-33.0)
[2021-05-16] MEDS ORDERED: HEPARIN SODIUM (PORCINE) 5000 UNITS/ML 1ML VIAL ONE (02:06)
[2021-05-16 02:09] LABS: Anion Gap 7 (5-15); BUN/Creatinine Ratio 34.1; Blood Urea Nitrogen 44 mg/dL (7-18); Calcium 7.1 mg/dL (8.5-10.1); Carbon Dioxide 29 mmol/L (21-32); Chloride 111 mmol/L (98-107); GFR African American 74 mL/min; GFR Non-African American 61 mL/min; Glucose 154 mg/dL (74-106); Sodium 147 mmol/L (136-145)
[2021-05-16] MEDS: HEPARIN DRIP/D5W 100UNITS/ML 250 ML IV SCH ×2 (02:20→07:58)
[2021-05-16] MEDS: VANCOMYCIN 1GM/250ML 250 ML IV SCH ×2 (03:44→21:04)
[2021-05-16] MEDS: SODIUM ZIRCONIUM CYCL 10 GM PAK GT SCH ×4 (06:00→18:00)
[2021-05-16] MEDS: SODIUM BICARBONATE 50ML VIAL 100 ML in SOD CHL 0.45% 1,000 ML IV SCH ×3 (06:13→22:25)
[2021-05-16] MEDS: fentaNYL Drip 2500mCg/250mlNS 250 ML IV SCH (06:30)
[2021-05-16] MEDS: MIDAZOLAM DRIP 50 mg/50mL 50 ML IV SCH ×3 (06:38→18:10)
[2021-05-16] MEDS: PHENYLEPHRINE INJ 80 MG in SODIUM CHL 0.9% 242 ML IV SCH (07:30)
[2021-05-16] MEDS: VASOPRESSIN 50 UNITS in D5W 5% 247.5 ML IV SCH (08:30)
[2021-05-16] MEDS: ATRACURIUM BESYLATE 1,000 MG in D5W 5% 150 ML IV SCH (08:52)
[2021-05-16] MEDS: DexAMETHasone SOD PHOS 10MG/1ML VIAL INJ IV SCH (09:12)
[2021-05-16] MEDS: PANTOPRAZOLE 40 MG/10 ML VIAL INJ IV SCH (09:12)
[2021-05-16] MEDS: ZINC SULFATE 220mg CAP or TAB PO SCH (10:00)
[2021-05-16] MEDS: CHOLECALCIFEROL (VITD3) 2,000 UNIT CAP/TAB PO SCH (10:00)
[2021-05-16] MEDS: ASCORBIC ACID 1,000 MG TAB PO SCH (10:00)
[2021-05-16 11:25] LABS: Partial Thromboplastin Time > 139.0 sec (23.6-33.0)
[2021-05-16] MEDS: NOREPINEPHRINE BITARTRATE 16 MG in SODIUM CHL 0.9% 234 ML IV SCH (11:30)
[2021-05-16] MEDS: EPINEPHrine HCL 250 ML IV SCH (12:30)
[2021-05-16] MEDS: BUDESONIDE (INHALATION) 0.5 MG/2 ML NEB NEB SCH ×2 (13:00→22:28)
[2021-05-16] MEDS: ALBUTEROL SULF 2.5 MG/0.5ML(0.5%) NEB SOLN NEB PRN ×3 (13:00→22:28)
[2021-05-16] MEDS: PROPOFOL 100 ML IV SCH (16:30)
[2021-05-16 19:54] LABS: INR 1.17 (0.9-1.15); Partial Thromboplastin Time 50.1 sec (23.6-33.0)
[2021-05-17] VITALS (99 sets, daily range): BP systolic 93–134; BP diastolic 44–73
[2021-05-17] MEDS: SODIUM ZIRCONIUM CYCL 10 GM PAK GT SCH ×4 (01:00→17:58)
[2021-05-17] MEDS: fentaNYL Drip 2500mCg/250mlNS 250 ML IV SCH (01:03)
[2021-05-17] MEDS: InsuLIN REG 1unit/0.01ml Soln (100units/ml) SC SCH ×5 (01:03→23:29)
[2021-05-17] MEDS: MEROPENEM 1GM IVPB 100 ML IV SCH ×2 (01:15→12:01)
[2021-05-17 02:58] LABS: Hemoglobin 9.1 g/dL (13.5-17.5)
[2021-05-17 03:00] LABS: Hematocrit 27.8 % (41.0-53.0); Mean Corpuscular Hemoglobin 28.4 pg (28.0-32.0); Mean Corpuscular Hgb Conc. 32.7 g/dL (32.0-36.0); Red Blood Cells 3.19 10^6/uL (4.5-5.90); Red Cell Distribution Width 13.2 % (11.8-14.3)
[2021-05-17 03:01] LABS: Basophils % (manual) 0 (0.0-2.0); Blast Cells 0; Eosinophils % (manual) 0 (0-7); Metamyelocytes % 0; Promyelocytes % 0; Reactive Lymphocytes 0
[2021-05-17 03:05] LABS: INR 1.01 (0.9-1.15); Partial Thromboplastin Time 54.7 sec (23.6-33.0)
[2021-05-17 03:08] LABS: BUN/Creatinine Ratio 41.6; Potassium 4.9 mmol/L (3.5-5.1)
[2021-05-17 05:05] LABS: Band Neutrophils % (manual) 1; Myelocytes % 1
[2021-05-17 05:06] LABS: Lymphocytes % (manual) 3 (10.0-50.0); Monocytes % (manual) 5 (0-12)
[2021-05-17] MEDS: ACCU-CHEK COMFORT CURVE STRIP VI SCH ×5 (05:42→23:29)
[2021-05-17] MEDS: BUDESONIDE (INHALATION) 0.5 MG/2 ML NEB NEB SCH ×2 (06:12→22:09)
[2021-05-17] MEDS: ALBUTEROL SULF 2.5 MG/0.5ML(0.5%) NEB SOLN NEB PRN ×2 (06:12→22:09)
[2021-05-17] MEDS: PROPOFOL 100 ML IV SCH ×2 (07:00→12:18)
[2021-05-17] MEDS: PHENYLEPHRINE INJ 80 MG in SODIUM CHL 0.9% 242 ML IV SCH (07:30)
[2021-05-17] MEDS: VASOPRESSIN 50 UNITS in D5W 5% 247.5 ML IV SCH (08:30)
[2021-05-17] MEDS: ATRACURIUM BESYLATE 1,000 MG in D5W 5% 150 ML IV SCH (09:00)
[2021-05-17] MEDS: ASCORBIC ACID 1,000 MG TAB PO SCH (09:48)
[2021-05-17] MEDS: DexAMETHasone SOD PHOS 10MG/1ML VIAL INJ IV SCH (09:48)
[2021-05-17] MEDS: PANTOPRAZOLE 40 MG/10 ML VIAL INJ IV SCH (09:48)
[2021-05-17] MEDS: ZINC SULFATE 220mg CAP or TAB PO SCH (09:48)
[2021-05-17] MEDS: CHOLECALCIFEROL (VITD3) 2,000 UNIT CAP/TAB PO SCH (09:48)
[2021-05-17 10:03] LABS: INR 0.99 (0.9-1.15); Partial Thromboplastin Time 40.1 sec (23.6-33.0)
[2021-05-17] MEDS: NOREPINEPHRINE BITARTRATE 16 MG in SODIUM CHL 0.9% 234 ML IV SCH (11:30)
[2021-05-17] MEDS: MIDAZOLAM DRIP 50 mg/50mL 50 ML IV SCH (12:17)
[2021-05-17] MEDS: EPINEPHrine HCL 250 ML IV SCH (12:30)
[2021-05-17 13:13] LABS: Hepatitis C Antibody Negative (Negative)
[2021-05-17] MEDS ORDERED: FONDAPARINUX SOD 2.5mg/0.5ml SYRINGE SC SCH (14:00)
[2021-05-17] MEDS: VANCOMYCIN 1GM/250ML 250 ML IV SCH (15:00)
[2021-05-17] MEDS ORDERED: FUROSEMIDE 20 MG/2 ML VIAL IV ONE (20:00)
[2021-05-17] MEDS: FONDAPARINUX SOD 2.5mg/0.5ml SYRINGE SC SCH (21:44)
[2021-05-17] MEDS ORDERED: ENOXAPARIN SOD 40 MG/0.4 ML SYRINGE SC SCH (22:00)
[2021-05-18] VITALS (102 sets, daily range): BP systolic 85–136; BP diastolic 45–75
[2021-05-18] MEDS: MEROPENEM 1GM IVPB 100 ML IV SCH ×4 (00:03→23:20)
[2021-05-18] MEDS: fentaNYL Drip 2500mCg/250mlNS 250 ML IV SCH ×2 (01:00→23:29)
[2021-05-18 05:59] LABS: White Blood Cell 28.1 10^3/uL (4.4-10.8)
[2021-05-18] MEDS: InsuLIN REG 1unit/0.01ml Soln (100units/ml) SC SCH ×4 (06:00→23:28)
[2021-05-18 06:01] LABS: Hemoglobin 8.7 g/dL (13.5-17.5); Mean Corpuscular Hemoglobin 28.7 pg (28.0-32.0); Mean Corpuscular Hgb Conc. 32.2 g/dL (32.0-36.0); Red Blood Cells 3.04 10^6/uL (4.5-5.90); Red Cell Distribution Width 13.6 % (11.8-14.3)
[2021-05-18] MEDS: ALBUTEROL SULF 2.5 MG/0.5ML(0.5%) NEB SOLN NEB PRN ×2 (06:08→21:39)
[2021-05-18] MEDS: BUDESONIDE (INHALATION) 0.5 MG/2 ML NEB NEB SCH ×2 (06:08→21:38)
[2021-05-18 06:13] LABS: BUN/Creatinine Ratio 54.2; Calcium 7.2 mg/dL (8.5-10.1); Potassium 4.9 mmol/L (3.5-5.1)
[2021-05-18] MEDS: ACCU-CHEK COMFORT CURVE STRIP VI SCH ×4 (06:20→23:20)
[2021-05-18 06:22] LABS: Basophils % (manual) 0 (0.0-2.0); Blast Cells 0; Eosinophils % (manual) 0 (0-7); Promyelocytes % 0; Reactive Lymphocytes 0
[2021-05-18] MEDS: PHENYLEPHRINE INJ 80 MG in SODIUM CHL 0.9% 242 ML IV SCH (07:30)
[2021-05-18] MEDS: PROPOFOL 100 ML IV SCH ×4 (08:27→23:00)
[2021-05-18] MEDS: VANCOMYCIN 1GM/250ML 250 ML IV SCH (08:28)
[2021-05-18] MEDS: VASOPRESSIN 50 UNITS in D5W 5% 247.5 ML IV SCH (08:30)
[2021-05-18 09:00] LABS: Band Neutrophils % (manual) 6; Lymphocytes % (manual) 1 (10.0-50.0); Metamyelocytes % 1; Monocytes % (manual) 6 (0-12); Myelocytes % 1
[2021-05-18] MEDS: ATRACURIUM BESYLATE 1,000 MG in D5W 5% 150 ML IV SCH (09:00)
[2021-05-18] MEDS: DexAMETHasone SOD PHOS 10MG/1ML VIAL INJ IV SCH (10:16)
[2021-05-18] MEDS: PANTOPRAZOLE 40 MG/10 ML VIAL INJ IV SCH (10:16)
[2021-05-18] MEDS: NOREPINEPHRINE BITARTRATE 16 MG in SODIUM CHL 0.9% 234 ML IV SCH (11:30)
[2021-05-18] MEDS: EPINEPHrine HCL 250 ML IV SCH (12:30)
[2021-05-18] MEDS ORDERED: FUROSEMIDE 40 MG/4 ML VIAL IV ONE (16:15)
[2021-05-18] MEDS: ASCORBIC ACID 1,000 MG TAB PO SCH (17:06)
[2021-05-18] MEDS: ZINC SULFATE 220mg CAP or TAB PO SCH (17:07)
[2021-05-18] MEDS: CHOLECALCIFEROL (VITD3) 2,000 UNIT CAP/TAB PO SCH (17:07)
[2021-05-18] MEDS: MIDAZOLAM DRIP 50 mg/50mL 50 ML IV SCH ×2 (17:08→22:00)
[2021-05-18] MEDS: FONDAPARINUX SOD 2.5mg/0.5ml SYRINGE SC SCH (22:02)
[2021-05-19] VITALS (102 sets, daily range): BP systolic 85–135; BP diastolic 47–81
[2021-05-19] MEDS: VANCOMYCIN 1GM/250ML 250 ML IV SCH ×2 (02:00→21:19)
[2021-05-19 04:44] LABS: Hemoglobin 8.8 g/dL (13.5-17.5); Mean Corpuscular Hemoglobin 28.7 pg (28.0-32.0); Mean Corpuscular Hgb Conc. 32.4 g/dL (32.0-36.0); Mean Corpuscular Volume 88.6 fL (80.0-100.0); Red Blood Cells 3.05 10^6/uL (4.5-5.90); Red Cell Distribution Width 13.7 % (11.8-14.3); White Blood Cell 25.8 10^3/uL (4.4-10.8)
[2021-05-19 05:08] LABS: Basophils % (manual) 0 (0.0-2.0); Blast Cells 0; Eosinophils % (manual) 0 (0-7); Metamyelocytes % 0; Promyelocytes % 0; Reactive Lymphocytes 0
[2021-05-19] MEDS: ACCU-CHEK COMFORT CURVE STRIP VI SCH ×3 (05:43→18:34)
[2021-05-19] MEDS: InsuLIN REG 1unit/0.01ml Soln (100units/ml) SC SCH ×3 (05:43→18:00)
[2021-05-19 07:02] LABS: Band Neutrophils % (manual) 3; Myelocytes % 1
[2021-05-19 07:03] LABS: Lymphocytes % (manual) 4 (10.0-50.0); Monocytes % (manual) 3 (0-12)
[2021-05-19] MEDS: PHENYLEPHRINE INJ 80 MG in SODIUM CHL 0.9% 242 ML IV SCH (07:30)
[2021-05-19] MEDS: VASOPRESSIN 50 UNITS in D5W 5% 247.5 ML IV SCH (07:51)
[2021-05-19] MEDS: ATRACURIUM BESYLATE 1,000 MG in D5W 5% 150 ML IV SCH (07:51)
[2021-05-19] MEDS: BUDESONIDE (INHALATION) 0.5 MG/2 ML NEB NEB SCH ×2 (08:02→19:31)
[2021-05-19] MEDS: ALBUTEROL SULF 2.5 MG/0.5ML(0.5%) NEB SOLN NEB PRN ×4 (08:02→19:31)
[2021-05-19] MEDS: PROPOFOL 100 ML IV SCH ×2 (08:41→15:00)
[2021-05-19] MEDS: PANTOPRAZOLE 40 MG/10 ML VIAL INJ IV SCH (09:48)
[2021-05-19] MEDS: DexAMETHasone SOD PHOS 10MG/1ML VIAL INJ IV SCH (09:48)
[2021-05-19] MEDS: ZINC SULFATE 220mg CAP or TAB PO SCH (09:51)
[2021-05-19] MEDS: CHOLECALCIFEROL (VITD3) 2,000 UNIT CAP/TAB PO SCH (09:51)
[2021-05-19] MEDS: ASCORBIC ACID 1,000 MG TAB PO SCH (09:51)
[2021-05-19] MEDS: MIDAZOLAM DRIP 50 mg/50mL 50 ML IV SCH ×4 (09:57→22:00)
[2021-05-19] MEDS: EPINEPHrine HCL 250 ML IV SCH (12:30)
[2021-05-19] MEDS ORDERED: FUROSEMIDE 40 MG/4 ML VIAL IV ONE (14:00)
[2021-05-19] MEDS: MEROPENEM 1GM IVPB 100 ML IV SCH (14:37)
[2021-05-19] MEDS: NOREPINEPHRINE BITARTRATE 16 MG in SODIUM CHL 0.9% 234 ML IV SCH (14:37)
[2021-05-19] MEDS: fentaNYL Drip 2500mCg/250mlNS 250 ML IV SCH (14:57)
[2021-05-19] MEDS: FONDAPARINUX SOD 2.5mg/0.5ml SYRINGE SC SCH ×2 (21:19→22:00)
[2021-05-20] VITALS (90 sets, daily range): BP systolic 93–123; BP diastolic 50–73
[2021-05-20] MEDS: fentaNYL Drip 2500mCg/250mlNS 250 ML IV SCH ×3 (00:43→12:04)
[2021-05-20] MEDS: InsuLIN REG 1unit/0.01ml Soln (100units/ml) SC SCH ×4 (06:00→18:00)
[2021-05-20] MEDS: ACCU-CHEK COMFORT CURVE STRIP VI SCH ×4 (06:20→18:00)
[2021-05-20] MEDS: BUDESONIDE (INHALATION) 0.5 MG/2 ML NEB NEB SCH ×2 (06:52→22:50)
[2021-05-20] MEDS: ALBUTEROL SULF 2.5 MG/0.5ML(0.5%) NEB SOLN NEB PRN ×2 (06:52→22:50)
[2021-05-20] MEDS: MIDAZOLAM DRIP 50 mg/50mL 50 ML IV SCH ×3 (06:53→17:14)
[2021-05-20] MEDS: PROPOFOL 100 ML IV SCH ×3 (06:54→17:06)
[2021-05-20] MEDS: PHENYLEPHRINE INJ 80 MG in SODIUM CHL 0.9% 242 ML IV SCH (07:30)
[2021-05-20 08:26] LABS: Hemoglobin 8.5 g/dL (13.5-17.5); Mean Corpuscular Hemoglobin 29.4 pg (28.0-32.0); Mean Corpuscular Hgb Conc. 32.7 g/dL (32.0-36.0); Mean Corpuscular Volume 89.9 fL (80.0-100.0); Red Cell Distribution Width 14.2 % (11.8-14.3); White Blood Cell 21.8 10^3/uL (4.4-10.8)
[2021-05-20 08:28] LABS: BUN/Creatinine Ratio 66.2; Calcium 7.5 mg/dL (8.5-10.1); Potassium 4.5 mmol/L (3.5-5.1)
[2021-05-20] MEDS: VASOPRESSIN 50 UNITS in D5W 5% 247.5 ML IV SCH (08:30)
[2021-05-20 08:35] LABS: Basophils % (manual) 0 (0.0-2.0); Blast Cells 0; Metamyelocytes % 0; Myelocytes % 0; Promyelocytes % 0; Reactive Lymphocytes 0
[2021-05-20] MEDS: ATRACURIUM BESYLATE 1,000 MG in D5W 5% 150 ML IV SCH (09:00)
[2021-05-20] MEDS: ASCORBIC ACID 1,000 MG TAB PO SCH (10:19)
[2021-05-20] MEDS: DexAMETHasone SOD PHOS 10MG/1ML VIAL INJ IV SCH (10:19)
[2021-05-20] MEDS: ZINC SULFATE 220mg CAP or TAB PO SCH (10:19)
[2021-05-20] MEDS: CHOLECALCIFEROL (VITD3) 2,000 UNIT CAP/TAB PO SCH (10:19)
[2021-05-20] MEDS: PANTOPRAZOLE 40 MG/10 ML VIAL INJ IV SCH (10:19)
[2021-05-20] MEDS: NOREPINEPHRINE BITARTRATE 16 MG in SODIUM CHL 0.9% 234 ML IV SCH (11:30)
[2021-05-20] MEDS: MEROPENEM 1GM IVPB 100 ML IV SCH ×3 (12:08→23:59)
[2021-05-20] MEDS: EPINEPHrine HCL 250 ML IV SCH (12:11)
[2021-05-20 12:40] LABS: Band Neutrophils % (manual) 3; Eosinophils % (manual) 2 (0-7); Lymphocytes % (manual) 7 (10.0-50.0); Monocytes % (manual) 4 (0-12)
[2021-05-20] MEDS: VANCOMYCIN 1GM/250ML 250 ML IV SCH (15:28)
[2021-05-20] MEDS ORDERED: FUROSEMIDE 40 MG/4 ML VIAL IV ONE (21:45)
[2021-05-21] VITALS (82 sets, daily range): BP systolic 98–150; BP diastolic 49–77
[2021-05-21 02:51] LABS: Hemoglobin 8.3 g/dL (13.5-17.5)
[2021-05-21 02:53] LABS: Mean Corpuscular Hemoglobin 29.7 pg (28.0-32.0); Mean Corpuscular Hgb Conc. 33.2 g/dL (32.0-36.0); Mean Corpuscular Volume 89.4 fL (80.0-100.0); Red Cell Distribution Width 14.1 % (11.8-14.3); White Blood Cell 17.9 10^3/uL (4.4-10.8)
[2021-05-21 03:12] LABS: Albumin 1.4 g/dL (3.4-5.0); Calcium 7.3 mg/dL (8.5-10.1); Potassium 4.3 mmol/L (3.5-5.1)
[2021-05-21 03:15] LABS: BUN/Creatinine Ratio 65.7; Bilirubin, Total 0.6 mg/dL (0.2-1.0); Total Protein 4.4 g/dL (6.4-8.2)
[2021-05-21 03:30] LABS: Basophils % (manual) 0 (0.0-2.0); Blast Cells 0; Metamyelocytes % 0; Promyelocytes % 0; Reactive Lymphocytes 0
[2021-05-21 04:59] LABS: Band Neutrophils % (manual) 2; Eosinophils % (manual) 2 (0-7); Lymphocytes % (manual) 3 (10.0-50.0); Monocytes % (manual) 4 (0-12); Myelocytes % 1
[2021-05-21] MEDS: InsuLIN REG 1unit/0.01ml Soln (100units/ml) SC SCH ×4 (06:00→18:00)
[2021-05-21] MEDS: ACCU-CHEK COMFORT CURVE STRIP VI SCH ×4 (06:00→18:00)
[2021-05-21] MEDS: ALBUTEROL SULF 2.5 MG/0.5ML(0.5%) NEB SOLN NEB PRN (06:29)
[2021-05-21] MEDS: BUDESONIDE (INHALATION) 0.5 MG/2 ML NEB NEB SCH ×2 (06:29→22:17)
[2021-05-21] MEDS: PHENYLEPHRINE INJ 80 MG in SODIUM CHL 0.9% 242 ML IV SCH (07:30)
[2021-05-21] MEDS: VANCOMYCIN 1GM/250ML 250 ML IV SCH (08:00)
[2021-05-21] MEDS: VASOPRESSIN 50 UNITS in D5W 5% 247.5 ML IV SCH (08:30)
[2021-05-21] MEDS: ATRACURIUM BESYLATE 1,000 MG in D5W 5% 150 ML IV SCH (09:00)
[2021-05-21] MEDS: PANTOPRAZOLE 40 MG/10 ML VIAL INJ IV SCH (10:18)
[2021-05-21] MEDS: DexAMETHasone SOD PHOS 10MG/1ML VIAL INJ IV SCH (10:18)
[2021-05-21] MEDS: ZINC SULFATE 220mg CAP or TAB PO SCH (10:20)
[2021-05-21] MEDS: ASCORBIC ACID 1,000 MG TAB PO SCH (10:20)
[2021-05-21] MEDS: CHOLECALCIFEROL (VITD3) 2,000 UNIT CAP/TAB PO SCH (10:20)
[2021-05-21] MEDS: NOREPINEPHRINE BITARTRATE 16 MG in SODIUM CHL 0.9% 234 ML IV SCH (11:30)
[2021-05-21] MEDS: PROPOFOL 100 ML IV SCH ×3 (12:00→20:35)
[2021-05-21] MEDS: MEROPENEM 1GM IVPB 100 ML IV SCH (12:00)
[2021-05-21] MEDS: MIDAZOLAM DRIP 50 mg/50mL 50 ML IV SCH ×4 (12:00→23:53)
[2021-05-21] MEDS: fentaNYL Drip 2500mCg/250mlNS 250 ML IV SCH ×2 (12:00→23:01)
[2021-05-21] MEDS: EPINEPHrine HCL 250 ML IV SCH (12:30)
[2021-05-21] MEDS: MICAFUNGIN SODIUM 100 MG in SODIUM CHL 0.9% 100 ML IV SCH (22:00)
[2021-05-21] MEDS: FONDAPARINUX SOD 2.5mg/0.5ml SYRINGE SC SCH (22:20)
[2021-05-21] MEDS: Jevity 1.2 Cal/Fiber 1 Liter GT SCH (23:52)
[2021-05-22] VITALS (103 sets, daily range): BP systolic 94–141; BP diastolic 49–82
[2021-05-22] MEDS: MEROPENEM 1GM IVPB 100 ML IV SCH ×3 (00:08→23:57)
[2021-05-22] MEDS: ACCU-CHEK COMFORT CURVE STRIP VI SCH ×5 (00:23→23:57)
[2021-05-22] MEDS: VANCOMYCIN 1GM/250ML 250 ML IV SCH ×2 (02:00→20:24)
[2021-05-22] MEDS: MIDAZOLAM DRIP 50 mg/50mL 50 ML IV SCH ×6 (03:08→23:28)
[2021-05-22] MEDS: Jevity 1.2 Cal/Fiber 1 Liter GT SCH (03:09)
[2021-05-22 03:51] LABS: Basophils # (auto) 0 10 ^3/uL (0-0.2); Basophils % (auto) 0.2 % (0.0-2.0); Eosinophils # (auto) 0.3 10 ^3/uL (0-0.8); Eosinophils % (auto) 2.4 % (0.0-7.0); Hemoglobin 8.2 g/dL (13.5-17.5); Lymphocytes # (auto) 0.6 10 ^3/uL (0.4-5.4); Lymphocytes % (auto) 4.6 % (10.0-50.0); Mean Corpuscular Hemoglobin 29.1 pg (28.0-32.0); Mean Corpuscular Hgb Conc. 32.7 g/dL (32.0-36.0); Monocytes # (auto) 0.9 10 ^3/uL (0-1.3); Monocytes % (auto) 6.7 % (0.0-12.0); Neutrophils # (auto) 11.8 10 ^3/uL (1.6-8.6); Neutrophils % (auto) 86.1 % (37.0-80.0); Nucleated Red Blood Cells % 0.1 %; Red Blood Cells 2.81 10^6/uL (4.5-5.90); Red Cell Distribution Width 14.2 % (11.8-14.3); White Blood Cell 13.8 10^3/uL (4.4-10.8)
[2021-05-22 04:12] LABS: Albumin 1.3 g/dL (3.4-5.0); Calcium 7.5 mg/dL (8.5-10.1); Potassium 4.2 mmol/L (3.5-5.1)
[2021-05-22 04:18] LABS: BUN/Creatinine Ratio 72.4; Bilirubin, Total 0.6 mg/dL (0.2-1.0); Total Protein 4.4 g/dL (6.4-8.2)
[2021-05-22] MEDS: InsuLIN REG 1unit/0.01ml Soln (100units/ml) SC SCH ×4 (05:30→18:00)
[2021-05-22] MEDS: PROPOFOL 100 ML IV SCH ×4 (06:25→20:58)
[2021-05-22] MEDS: fentaNYL Drip 2500mCg/250mlNS 250 ML IV SCH ×3 (06:26→22:46)
[2021-05-22] MEDS: PHENYLEPHRINE INJ 80 MG in SODIUM CHL 0.9% 242 ML IV SCH (07:30)
[2021-05-22] MEDS: VASOPRESSIN 50 UNITS in D5W 5% 247.5 ML IV SCH (08:30)
[2021-05-22] MEDS: ATRACURIUM BESYLATE 1,000 MG in D5W 5% 150 ML IV SCH (09:00)
[2021-05-22] MEDS: DexAMETHasone SOD PHOS 10MG/1ML VIAL INJ IV SCH (10:23)
[2021-05-22] MEDS: PANTOPRAZOLE 40 MG/10 ML VIAL INJ IV SCH (10:23)
[2021-05-22] MEDS: ZINC SULFATE 220mg CAP or TAB PO SCH (10:24)
[2021-05-22] MEDS: ASCORBIC ACID 1,000 MG TAB PO SCH (10:24)
[2021-05-22] MEDS: CHOLECALCIFEROL (VITD3) 2,000 UNIT CAP/TAB PO SCH (10:24)
[2021-05-22] MEDS: NOREPINEPHRINE BITARTRATE 16 MG in SODIUM CHL 0.9% 234 ML IV SCH (11:30)
[2021-05-22] MEDS: EPINEPHrine HCL 250 ML IV SCH (12:30)
[2021-05-22] MEDS: BUDESONIDE (INHALATION) 0.5 MG/2 ML NEB NEB SCH ×2 (15:49→18:51)
[2021-05-22] MEDS: ALBUTEROL SULF 2.5 MG/0.5ML(0.5%) NEB SOLN NEB PRN ×2 (15:49→18:51)
[2021-05-22] MEDS: FONDAPARINUX SOD 2.5mg/0.5ml SYRINGE SC SCH (21:39)
[2021-05-22] MEDS: MICAFUNGIN SODIUM 100 MG in SODIUM CHL 0.9% 100 ML IV SCH (21:39)
[2021-05-23] VITALS (84 sets, daily range): BP systolic 94–166; BP diastolic 49–71
[2021-05-23] MEDS: InsuLIN REG 1unit/0.01ml Soln (100units/ml) SC SCH ×4 (00:02→18:17)
[2021-05-23] MEDS: PROPOFOL 100 ML IV SCH ×2 (01:07→14:57)
[2021-05-23] MEDS: MIDAZOLAM DRIP 50 mg/50mL 50 ML IV SCH ×3 (01:07→14:57)
[2021-05-23 04:45] LABS: Eosinophils # (auto) 0.3 10 ^3/uL (0-0.8); Eosinophils % (auto) 2.3 % (0.0-7.0); Hemoglobin 8.4 g/dL (13.5-17.5); Lymphocytes # (auto) 0.6 10 ^3/uL (0.4-5.4); Monocytes # (auto) 0.8 10 ^3/uL (0-1.3); Neutrophils # (auto) 10.2 10 ^3/uL (1.6-8.6); Neutrophils % (auto) 85.3 % (37.0-80.0)
[2021-05-23 04:48] LABS: Basophils # (auto) 0 10 ^3/uL (0-0.2); Basophils % (auto) 0.3 % (0.0-2.0); Hematocrit 25.8 % (41.0-53.0); Lymphocytes % (auto) 5.2 % (10.0-50.0); Mean Corpuscular Hemoglobin 29.1 pg (28.0-32.0); Mean Corpuscular Hgb Conc. 32.6 g/dL (32.0-36.0); Mean Corpuscular Volume 89.4 fL (80.0-100.0); Monocytes % (auto) 6.9 % (0.0-12.0); Nucleated Red Blood Cells % 0.1 %; Red Blood Cells 2.89 10^6/uL (4.5-5.90); Red Cell Distribution Width 14.1 % (11.8-14.3)
[2021-05-23 05:15] LABS: Albumin 1.5 g/dL (3.4-5.0); Potassium 4.4 mmol/L (3.5-5.1)
[2021-05-23 05:21] LABS: BUN/Creatinine Ratio 68.5; Bilirubin, Total 0.6 mg/dL (0.2-1.0); Calcium 7.8 mg/dL (8.5-10.1); Total Protein 4.4 g/dL (6.4-8.2)
[2021-05-23] MEDS: ACCU-CHEK COMFORT CURVE STRIP VI SCH ×3 (06:11→18:08)
[2021-05-23] MEDS: fentaNYL Drip 2500mCg/250mlNS 250 ML IV SCH ×2 (06:15→10:00)
[2021-05-23] MEDS: BUDESONIDE (INHALATION) 0.5 MG/2 ML NEB NEB SCH ×2 (06:28→22:08)
[2021-05-23] MEDS: ALBUTEROL SULF 2.5 MG/0.5ML(0.5%) NEB SOLN NEB PRN ×2 (06:28→22:08)
[2021-05-23] MEDS: PHENYLEPHRINE INJ 80 MG in SODIUM CHL 0.9% 242 ML IV SCH (07:00)
[2021-05-23] MEDS: VASOPRESSIN 50 UNITS in D5W 5% 247.5 ML IV SCH (07:54)
[2021-05-23] MEDS: ATRACURIUM BESYLATE 1,000 MG in D5W 5% 150 ML IV SCH (07:54)
[2021-05-23] MEDS: ZINC SULFATE 220mg CAP or TAB PO SCH (09:06)
[2021-05-23] MEDS: ASCORBIC ACID 1,000 MG TAB PO SCH (09:06)
[2021-05-23] MEDS: DexAMETHasone SOD PHOS 10MG/1ML VIAL INJ IV SCH (09:06)
[2021-05-23] MEDS: CHOLECALCIFEROL (VITD3) 2,000 UNIT CAP/TAB PO SCH (09:06)
[2021-05-23] MEDS: PANTOPRAZOLE 40 MG/10 ML VIAL INJ IV SCH (09:06)
[2021-05-23] MEDS: NOREPINEPHRINE BITARTRATE 16 MG in SODIUM CHL 0.9% 234 ML IV SCH (11:29)
[2021-05-23] MEDS: MEROPENEM 1GM IVPB 100 ML IV SCH (13:00)
[2021-05-23] MEDS: EPINEPHrine HCL 250 ML IV SCH (13:04)
[2021-05-23] MEDS: VANCOMYCIN 1GM/250ML 250 ML IV SCH (15:11)
[2021-05-23] MEDS: FONDAPARINUX SOD 2.5mg/0.5ml SYRINGE SC SCH (21:24)
[2021-05-23] MEDS: MICAFUNGIN SODIUM 100 MG in SODIUM CHL 0.9% 100 ML IV SCH (21:24)
[2021-05-24] VITALS (57 sets, daily range): BP systolic 89–135; BP diastolic 47–78
[2021-05-24 02:16] LABS: Basophils # (auto) 0.1 10 ^3/uL (0-0.2); Basophils % (auto) 0.5 % (0.0-2.0); Eosinophils # (auto) 0.5 10 ^3/uL (0-0.8); Eosinophils % (auto) 4.3 % (0.0-7.0); Hemoglobin 8.2 g/dL (13.5-17.5); Nucleated Red Blood Cells % 0.1 %; White Blood Cell 12.4 10^3/uL (4.4-10.8)
[2021-05-24 02:18] LABS: Hematocrit 25.5 % (41.0-53.0); Lymphocytes # (auto) 0.7 10 ^3/uL (0.4-5.4); Mean Corpuscular Hemoglobin 29.5 pg (28.0-32.0); Mean Corpuscular Hgb Conc. 32.2 g/dL (32.0-36.0); Mean Corpuscular Volume 91.5 fL (80.0-100.0); Monocytes % (auto) 8.3 % (0.0-12.0); Neutrophils % (auto) 80.9 % (37.0-80.0); Red Blood Cells 2.78 10^6/uL (4.5-5.90); Red Cell Distribution Width 15.6 % (11.8-14.3)
[2021-05-24 02:49] LABS: Albumin 1.5 g/dL (3.4-5.0); BUN/Creatinine Ratio 68.5; Calcium 7.6 mg/dL (8.5-10.1); Potassium 4.7 mmol/L (3.5-5.1)
[2021-05-24 02:52] LABS: Bilirubin, Total 0.5 mg/dL (0.2-1.0); Total Protein 4.3 g/dL (6.4-8.2)
[2021-05-24] MEDS: InsuLIN REG 1unit/0.01ml Soln (100units/ml) SC SCH ×5 (05:29→23:55)
[2021-05-24] MEDS: ACCU-CHEK COMFORT CURVE STRIP VI SCH ×5 (05:30→23:55)
[2021-05-24] MEDS: ALBUTEROL SULF 2.5 MG/0.5ML(0.5%) NEB SOLN NEB PRN ×2 (06:18→22:23)
[2021-05-24] MEDS: BUDESONIDE (INHALATION) 0.5 MG/2 ML NEB NEB SCH ×2 (06:18→22:23)
[2021-05-24] MEDS: PHENYLEPHRINE INJ 80 MG in SODIUM CHL 0.9% 242 ML IV SCH (07:30)
[2021-05-24] MEDS: VANCOMYCIN 1GM/250ML 250 ML IV SCH (08:20)
[2021-05-24] MEDS: ATRACURIUM BESYLATE 1,000 MG in D5W 5% 150 ML IV SCH (09:00)
[2021-05-24] MEDS: DexAMETHasone SOD PHOS 10MG/1ML VIAL INJ IV SCH (09:05)
[2021-05-24] MEDS: PANTOPRAZOLE 40 MG/10 ML VIAL INJ IV SCH (09:05)
[2021-05-24] MEDS: ASCORBIC ACID 1,000 MG TAB PO SCH (09:06)
[2021-05-24] MEDS: ZINC SULFATE 220mg CAP or TAB PO SCH (09:06)
[2021-05-24] MEDS: CHOLECALCIFEROL (VITD3) 2,000 UNIT CAP/TAB PO SCH (09:06)
[2021-05-24] MEDS: fentaNYL Drip 2500mCg/250mlNS 250 ML IV SCH ×2 (09:45→13:30)
[2021-05-24] MEDS: PROPOFOL 100 ML IV SCH ×3 (10:28→18:35)
[2021-05-24] MEDS: MIDAZOLAM DRIP 50 mg/50mL 50 ML IV SCH ×3 (10:28→18:30)
[2021-05-24] MEDS: NOREPINEPHRINE BITARTRATE 16 MG in SODIUM CHL 0.9% 234 ML IV SCH (11:30)
[2021-05-24] MEDS: EPINEPHrine HCL 250 ML IV SCH (12:30)
[2021-05-24] MEDS: VASOPRESSIN 50 UNITS in D5W 5% 247.5 ML IV SCH (12:30)
[2021-05-24] MEDS: MEROPENEM 1GM IVPB 100 ML IV SCH ×2 (12:37)
[2021-05-24] MEDS: MICAFUNGIN SODIUM 100 MG in SODIUM CHL 0.9% 100 ML IV SCH (21:09)
[2021-05-24] MEDS: FONDAPARINUX SOD 2.5mg/0.5ml SYRINGE SC SCH (21:09)
[2021-05-25] VITALS (54 sets, daily range): BP systolic 100–128; BP diastolic 37–72
[2021-05-25] MEDS: VANCOMYCIN 1GM/250ML 250 ML IV SCH ×2 (02:00→20:00)
[2021-05-25 02:10] LABS: Basophils # (auto) 0.1 10 ^3/uL (0-0.2); Basophils % (auto) 0.5 % (0.0-2.0); Eosinophils # (auto) 0.4 10 ^3/uL (0-0.8); Hematocrit 27.4 % (41.0-53.0); Hemoglobin 8.8 g/dL (13.5-17.5); Lymphocytes # (auto) 0.8 10 ^3/uL (0.4-5.4); Lymphocytes % (auto) 5.7 % (10.0-50.0); Mean Corpuscular Hemoglobin 29.4 pg (28.0-32.0); Mean Corpuscular Hgb Conc. 31.9 g/dL (32.0-36.0); Mean Corpuscular Volume 92.1 fL (80.0-100.0); Monocytes # (auto) 1.2 10 ^3/uL (0-1.3); Monocytes % (auto) 9.2 % (0.0-12.0); Neutrophils # (auto) 10.9 10 ^3/uL (1.6-8.6); Neutrophils % (auto) 81.6 % (37.0-80.0); Nucleated Red Blood Cells % 0.2 %; Red Blood Cells 2.98 10^6/uL (4.5-5.90); Red Cell Distribution Width 16.3 % (11.8-14.3); White Blood Cell 13.3 10^3/uL (4.4-10.8)
[2021-05-25 02:31] LABS: Albumin 1.7 g/dL (3.4-5.0); Calcium 7.7 mg/dL (8.5-10.1); Potassium 4.8 mmol/L (3.5-5.1)
[2021-05-25 02:34] LABS: Bilirubin, Total 0.5 mg/dL (0.2-1.0); Total Protein 4.7 g/dL (6.4-8.2)
[2021-05-25] MEDS: ACCU-CHEK COMFORT CURVE STRIP VI SCH ×4 (06:00→23:47)
[2021-05-25] MEDS: InsuLIN REG 1unit/0.01ml Soln (100units/ml) SC SCH ×4 (06:00→23:46)
[2021-05-25] MEDS: BUDESONIDE (INHALATION) 0.5 MG/2 ML NEB NEB SCH ×2 (06:14→19:42)
[2021-05-25] MEDS: ALBUTEROL SULF 2.5 MG/0.5ML(0.5%) NEB SOLN NEB PRN ×2 (06:14→19:42)
[2021-05-25] MEDS: PHENYLEPHRINE INJ 80 MG in SODIUM CHL 0.9% 242 ML IV SCH (07:30)
[2021-05-25] MEDS: VASOPRESSIN 50 UNITS in D5W 5% 247.5 ML IV SCH (08:30)
[2021-05-25] MEDS: DexAMETHasone SOD PHOS 10MG/1ML VIAL INJ IV SCH (09:35)
[2021-05-25] MEDS: PANTOPRAZOLE 40 MG/10 ML VIAL INJ IV SCH (09:35)
[2021-05-25] MEDS: CHOLECALCIFEROL (VITD3) 2,000 UNIT CAP/TAB PO SCH (09:36)
[2021-05-25] MEDS: ASCORBIC ACID 1,000 MG TAB PO SCH (09:36)
[2021-05-25] MEDS: ZINC SULFATE 220mg CAP or TAB PO SCH (09:36)
[2021-05-25] MEDS: PROPOFOL 100 ML IV SCH ×3 (09:37→18:13)
[2021-05-25] MEDS: MIDAZOLAM DRIP 50 mg/50mL 50 ML IV SCH ×3 (09:54→17:07)
[2021-05-25] MEDS: NOREPINEPHRINE BITARTRATE 16 MG in SODIUM CHL 0.9% 234 ML IV SCH (11:12)
[2021-05-25] MEDS: MEROPENEM 1GM IVPB 100 ML IV SCH ×2 (11:26)
[2021-05-25] MEDS: EPINEPHrine HCL 250 ML IV SCH (12:30)
[2021-05-25] MEDS: fentaNYL Drip 2500mCg/250mlNS 250 ML IV SCH (13:14)
[2021-05-25] MEDS: ACETAMINOPHEN 650 mg PER 20.3 mL UD GT PRN (18:12)
[2021-05-25] MEDS: FUROSEMIDE INJECTION 100 MG in D5W 5% 100 ML IV SCH (20:00)
[2021-05-25] MEDS: MICAFUNGIN SODIUM 100 MG in SODIUM CHL 0.9% 100 ML IV SCH (22:00)
[2021-05-25] MEDS: FONDAPARINUX SOD 2.5mg/0.5ml SYRINGE SC SCH (22:05)
[2021-05-26] VITALS (10 sets, daily range): BP systolic 101–131; BP diastolic 50–73
[2021-05-26 02:35] LABS: Albumin 1.7 g/dL (3.4-5.0); BUN/Creatinine Ratio 51.8; Calcium 7.8 mg/dL (8.5-10.1); Potassium 4.1 mmol/L (3.5-5.1)
[2021-05-26 02:37] LABS: Bilirubin, Total 0.5 mg/dL (0.2-1.0); Total Protein 4.9 g/dL (6.4-8.2)
[2021-05-26 02:59] LABS: Mean Corpuscular Hemoglobin 28.6 pg (28.0-32.0)
[2021-05-26 03:00] LABS: Hematocrit 27.9 % (41.0-53.0); Hemoglobin 8.6 g/dL (13.5-17.5); Mean Corpuscular Volume 92.1 fL (80.0-100.0); Red Blood Cells 3.03 10^6/uL (4.5-5.90); Red Cell Distribution Width 17.2 % (11.8-14.3); White Blood Cell 12.8 10^3/uL (4.4-10.8)
[2021-05-26 03:12] LABS: Basophils % (manual) 0 (0.0-2.0); Blast Cells 0; Promyelocytes % 0; Reactive Lymphocytes 0
[2021-05-26] MEDS: ACCU-CHEK COMFORT CURVE STRIP VI SCH ×4 (05:11→23:34)
[2021-05-26] MEDS: InsuLIN REG 1unit/0.01ml Soln (100units/ml) SC SCH ×4 (05:11→23:34)
[2021-05-26 05:59] LABS: Band Neutrophils % (manual) 4; Eosinophils % (manual) 4 (0-7); Metamyelocytes % 1; Myelocytes % 6
[2021-05-26 06:01] LABS: Lymphocytes % (manual) 8 (10.0-50.0); Monocytes % (manual) 9 (0-12)
[2021-05-26] MEDS: ALBUTEROL SULF 2.5 MG/0.5ML(0.5%) NEB SOLN NEB PRN ×2 (06:10→21:55)
[2021-05-26] MEDS: BUDESONIDE (INHALATION) 0.5 MG/2 ML NEB NEB SCH ×2 (06:10→21:55)
[2021-05-26] MEDS: PHENYLEPHRINE INJ 80 MG in SODIUM CHL 0.9% 242 ML IV SCH (07:30)
[2021-05-26] MEDS: VASOPRESSIN 50 UNITS in D5W 5% 247.5 ML IV SCH (08:30)
[2021-05-26] MEDS: PROPOFOL 100 ML IV SCH ×3 (08:53→18:03)
[2021-05-26] MEDS: FUROSEMIDE INJECTION 100 MG in D5W 5% 100 ML IV SCH (08:53)
[2021-05-26] MEDS: MIDAZOLAM DRIP 50 mg/50mL 50 ML IV SCH ×3 (08:54→18:04)
[2021-05-26] MEDS: DexAMETHasone SOD PHOS 10MG/1ML VIAL INJ IV SCH (10:24)
[2021-05-26] MEDS: PANTOPRAZOLE 40 MG/10 ML VIAL INJ IV SCH (10:24)
[2021-05-26] MEDS: ZINC SULFATE 220mg CAP or TAB PO SCH (10:25)
[2021-05-26] MEDS: ASCORBIC ACID 1,000 MG TAB PO SCH (10:25)
[2021-05-26] MEDS: CHOLECALCIFEROL (VITD3) 2,000 UNIT CAP/TAB PO SCH (10:25)
[2021-05-26] MEDS: MEROPENEM 1GM IVPB 100 ML IV SCH ×2 (11:29)
[2021-05-26] MEDS: NOREPINEPHRINE BITARTRATE 16 MG in SODIUM CHL 0.9% 234 ML IV SCH (11:30)
[2021-05-26] MEDS: EPINEPHrine HCL 250 ML IV SCH (12:30)
[2021-05-26] MEDS: fentaNYL Drip 2500mCg/250mlNS 250 ML IV SCH (13:44)
[2021-05-26] MEDS: VANCOMYCIN 1GM/250ML 250 ML IV SCH (14:11)
[2021-05-26] MEDS: MICAFUNGIN SODIUM 100 MG in SODIUM CHL 0.9% 100 ML IV SCH (22:00)
[2021-05-26] MEDS: acetaZOLAMIDE 250 MG TAB PO SCH (22:00)
[2021-05-26] MEDS: FONDAPARINUX SOD 2.5mg/0.5ml SYRINGE SC SCH (22:00)
[2021-05-27] VITALS (34 sets, daily range): BP systolic 57–118; BP diastolic 48–65
[2021-05-27 02:19] LABS: Basophils # (auto) 0.1 10 ^3/uL (0-0.2); Basophils % (auto) 0.6 % (0.0-2.0); Eosinophils # (auto) 0.7 10 ^3/uL (0-0.8); Eosinophils % (auto) 4.6 % (0.0-7.0); Hematocrit 27.2 % (41.0-53.0); Hemoglobin 8.7 g/dL (13.5-17.5); Lymphocytes # (auto) 0.6 10 ^3/uL (0.4-5.4); Lymphocytes % (auto) 4.3 % (10.0-50.0); Mean Corpuscular Hemoglobin 29.5 pg (28.0-32.0); Mean Corpuscular Hgb Conc. 31.9 g/dL (32.0-36.0); Mean Corpuscular Volume 92.4 fL (80.0-100.0); Monocytes # (auto) 1.2 10 ^3/uL (0-1.3); Monocytes % (auto) 8.1 % (0.0-12.0); Neutrophils # (auto) 11.9 10 ^3/uL (1.6-8.6); Neutrophils % (auto) 82.4 % (37.0-80.0); Nucleated Red Blood Cells % 0.1 %; Red Blood Cells 2.94 10^6/uL (4.5-5.90); Red Cell Distribution Width 16.3 % (11.8-14.3); White Blood Cell 14.5 10^3/uL (4.4-10.8)
[2021-05-27 02:35] LABS: Albumin 1.6 g/dL (3.4-5.0); BUN/Creatinine Ratio 44.4; Calcium 7.3 mg/dL (8.5-10.1); Potassium 3.8 mmol/L (3.5-5.1)
[2021-05-27 02:38] LABS: Bilirubin, Total 0.6 mg/dL (0.2-1.0); Total Protein 4.7 g/dL (6.4-8.2)
[2021-05-27] MEDS: InsuLIN REG 1unit/0.01ml Soln (100units/ml) SC SCH ×4 (05:14→23:45)
[2021-05-27] MEDS: ACCU-CHEK COMFORT CURVE STRIP VI SCH ×4 (05:15→23:44)
[2021-05-27] MEDS: PHENYLEPHRINE INJ 80 MG in SODIUM CHL 0.9% 242 ML IV SCH (07:30)
[2021-05-27] MEDS: VANCOMYCIN 1GM/250ML 250 ML IV SCH (07:38)
[2021-05-27] MEDS: VASOPRESSIN 50 UNITS in D5W 5% 247.5 ML IV SCH (08:30)
[2021-05-27] MEDS: ZINC SULFATE 220mg CAP or TAB PO SCH (09:21)
[2021-05-27] MEDS: ASCORBIC ACID 1,000 MG TAB PO SCH (09:21)
[2021-05-27] MEDS: PANTOPRAZOLE 40 MG/10 ML VIAL INJ IV SCH (09:21)
[2021-05-27] MEDS: DexAMETHasone SOD PHOS 10MG/1ML VIAL INJ IV SCH (09:21)
[2021-05-27] MEDS: CHOLECALCIFEROL (VITD3) 2,000 UNIT CAP/TAB PO SCH (09:22)
[2021-05-27] MEDS: BUDESONIDE (INHALATION) 0.5 MG/2 ML NEB NEB SCH ×2 (09:41→19:23)
[2021-05-27] MEDS: ALBUTEROL SULF 2.5 MG/0.5ML(0.5%) NEB SOLN NEB PRN ×2 (09:41→19:23)
[2021-05-27] MEDS: MIDAZOLAM DRIP 50 mg/50mL 50 ML IV SCH ×3 (10:41→18:10)
[2021-05-27] MEDS: acetaZOLAMIDE 250 MG TAB PO SCH ×2 (11:26→22:50)
[2021-05-27] MEDS: MEROPENEM 1GM IVPB 100 ML IV SCH ×2 (11:27)
[2021-05-27] MEDS: NOREPINEPHRINE BITARTRATE 16 MG in SODIUM CHL 0.9% 234 ML IV SCH (11:30)
[2021-05-27] MEDS: EPINEPHrine HCL 250 ML IV SCH (12:30)
[2021-05-27] MEDS: PROPOFOL 100 ML IV SCH ×2 (13:00→15:36)
[2021-05-27] MEDS: fentaNYL Drip 2500mCg/250mlNS 250 ML IV SCH (15:13)
[2021-05-27] MEDS: FONDAPARINUX SOD 2.5mg/0.5ml SYRINGE SC SCH (22:50)
[2021-05-27] MEDS: MICAFUNGIN SODIUM 100 MG in SODIUM CHL 0.9% 100 ML IV SCH (22:50)
[2021-05-28] VITALS (68 sets, daily range): BP systolic 78–111; BP diastolic 38–63
[2021-05-28] MEDS: MEROPENEM 1GM IVPB 100 ML IV SCH ×2 (00:10→12:30)
[2021-05-28] MEDS: VANCOMYCIN 1GM/250ML 250 ML IV SCH ×2 (02:00→20:34)
[2021-05-28 05:44] LABS: Hematocrit 27.2 % (41.0-53.0); Hemoglobin 8.5 g/dL (13.5-17.5); Mean Corpuscular Hemoglobin 29.4 pg (28.0-32.0); Mean Corpuscular Hgb Conc. 31.3 g/dL (32.0-36.0); Mean Corpuscular Volume 93.8 fL (80.0-100.0); Red Cell Distribution Width 16.2 % (11.8-14.3); White Blood Cell 13.3 10^3/uL (4.4-10.8)
[2021-05-28] MEDS: InsuLIN REG 1unit/0.01ml Soln (100units/ml) SC SCH ×3 (05:52→18:00)
[2021-05-28] MEDS: ACCU-CHEK COMFORT CURVE STRIP VI SCH ×3 (05:52→18:26)
[2021-05-28 06:11] LABS: Calcium 7.8 mg/dL (8.5-10.1); Potassium 4.2 mmol/L (3.5-5.1)
[2021-05-28 06:14] LABS: BUN/Creatinine Ratio 41.7
[2021-05-28] MEDS: ALBUTEROL SULF 2.5 MG/0.5ML(0.5%) NEB SOLN NEB PRN ×2 (06:26→22:20)
[2021-05-28] MEDS: BUDESONIDE (INHALATION) 0.5 MG/2 ML NEB NEB SCH ×2 (06:27→22:20)
[2021-05-28 06:28] LABS: Basophils % (manual) 0 (0.0-2.0); Blast Cells 0; Myelocytes % 0; Promyelocytes % 0; Reactive Lymphocytes 0
[2021-05-28] MEDS: PHENYLEPHRINE INJ 80 MG in SODIUM CHL 0.9% 242 ML IV SCH ×2 (07:30→13:30)
[2021-05-28] MEDS: VASOPRESSIN 50 UNITS in D5W 5% 247.5 ML IV SCH (07:38)
[2021-05-28 07:46] LABS: Band Neutrophils % (manual) 11; Eosinophils % (manual) 2 (0-7); Lymphocytes % (manual) 5 (10.0-50.0); Metamyelocytes % 3; Monocytes % (manual) 8 (0-12)
[2021-05-28] MEDS: ASCORBIC ACID 1,000 MG TAB PO SCH (08:33)
[2021-05-28] MEDS: ZINC SULFATE 220mg CAP or TAB PO SCH (08:33)
[2021-05-28] MEDS: DexAMETHasone SOD PHOS 10MG/1ML VIAL INJ IV SCH (08:33)
[2021-05-28] MEDS: acetaZOLAMIDE 250 MG TAB PO SCH (08:33)
[2021-05-28] MEDS: CHOLECALCIFEROL (VITD3) 2,000 UNIT CAP/TAB PO SCH (08:33)
[2021-05-28] MEDS: PANTOPRAZOLE 40 MG/10 ML VIAL INJ IV SCH (08:33)
[2021-05-28] MEDS: PROPOFOL 100 ML IV SCH (09:30)
[2021-05-28] MEDS: MIDAZOLAM DRIP 50 mg/50mL 50 ML IV SCH (09:47)
[2021-05-28] MEDS: NOREPINEPHRINE BITARTRATE 16 MG in SODIUM CHL 0.9% 234 ML IV SCH ×2 (10:33→17:45)
[2021-05-28] MEDS: EPINEPHrine HCL 250 ML IV SCH (12:30)
[2021-05-28] MEDS ORDERED: FUROSEMIDE INJECTION 100 MG in D5W 5% 100 ML IV SCH (17:45)
[2021-05-28] MEDS ORDERED: ROCURONIUM 10MG/ML 10ML VIAL IV ONE ×2 (18:07→18:23)
[2021-05-28] MEDS: ACETAMINOPHEN 650 mg PER 20.3 mL UD GT PRN (20:18)
[2021-05-28] MEDS: FONDAPARINUX SOD 2.5mg/0.5ml SYRINGE SC SCH (22:23)
[2021-05-28] MEDS: MICAFUNGIN SODIUM 100 MG in SODIUM CHL 0.9% 100 ML IV SCH (22:23)
[2021-05-29] VITALS (61 sets, daily range): BP systolic 67–142; BP diastolic 36–75
[2021-05-29] MEDS: MEROPENEM 1GM IVPB 100 ML IV SCH ×2 (01:07→12:15)
[2021-05-29] MEDS: InsuLIN REG 1unit/0.01ml Soln (100units/ml) SC SCH ×3 (01:08→12:00)
[2021-05-29] MEDS: ACCU-CHEK COMFORT CURVE STRIP VI SCH ×3 (05:50→12:00)
[2021-05-29] MEDS: BUDESONIDE (INHALATION) 0.5 MG/2 ML NEB NEB SCH ×2 (06:30→22:19)
[2021-05-29 07:03] LABS: Eosinophils # (auto) 0.1 10 ^3/uL (0-0.8); Neutrophils # (auto) 16.2 10 ^3/uL (1.6-8.6); Neutrophils % (auto) 82.8 % (37.0-80.0)
[2021-05-29 07:04] LABS: Basophils # (auto) 0.1 10 ^3/uL (0-0.2); Basophils % (auto) 0.4 % (0.0-2.0); Eosinophils % (auto) 0.7 % (0.0-7.0); Hematocrit 27.4 % (41.0-53.0); Hemoglobin 8.4 g/dL (13.5-17.5); Lymphocytes % (auto) 5.1 % (10.0-50.0); Mean Corpuscular Hemoglobin 28.9 pg (28.0-32.0); Mean Corpuscular Hgb Conc. 30.5 g/dL (32.0-36.0); Mean Corpuscular Volume 94.9 fL (80.0-100.0); Monocytes # (auto) 2.2 10 ^3/uL (0-1.3); Red Blood Cells 2.89 10^6/uL (4.5-5.90); Red Cell Distribution Width 16.6 % (11.8-14.3); White Blood Cell 19.6 10^3/uL (4.4-10.8)
[2021-05-29 07:16] LABS: Potassium 4.4 mmol/L (3.5-5.1)
[2021-05-29 07:23] LABS: Albumin 1.9 g/dL (3.4-5.0); BUN/Creatinine Ratio 28.3; Bilirubin, Total 0.7 mg/dL (0.2-1.0); Total Protein 5.2 g/dL (6.4-8.2)
[2021-05-29] MEDS: VASOPRESSIN 50 UNITS in D5W 5% 247.5 ML IV SCH (08:30)
[2021-05-29] MEDS: fentaNYL Drip 2500mCg/250mlNS 250 ML IV SCH ×2 (09:45→18:40)
[2021-05-29] MEDS: CHOLECALCIFEROL (VITD3) 2,000 UNIT CAP/TAB PO SCH (10:09)
[2021-05-29] MEDS: ZINC SULFATE 220mg CAP or TAB PO SCH (10:09)
[2021-05-29] MEDS: DexAMETHasone SOD PHOS 10MG/1ML VIAL INJ IV SCH (10:09)
[2021-05-29] MEDS: PANTOPRAZOLE 40 MG/10 ML VIAL INJ IV SCH (10:09)
[2021-05-29] MEDS: ASCORBIC ACID 1,000 MG TAB PO SCH (10:09)
[2021-05-29] MEDS: MIDAZOLAM DRIP 50 mg/50mL 50 ML IV SCH ×3 (10:10→22:21)
[2021-05-29] MEDS: EPINEPHrine HCL 250 ML IV SCH (10:11)
[2021-05-29] MEDS: PROPOFOL 100 ML IV SCH (21:11)
[2021-05-29] MEDS: ALBUTEROL SULF 2.5 MG/0.5ML(0.5%) NEB SOLN NEB PRN (22:19)
[2021-05-29] MEDS: MICAFUNGIN SODIUM 100 MG in SODIUM CHL 0.9% 100 ML IV SCH (22:21)
[2021-05-29] MEDS: FONDAPARINUX SOD 2.5mg/0.5ml SYRINGE SC SCH (22:23)
[2021-05-30] VITALS (78 sets, daily range): BP systolic 64–119; BP diastolic 37–86
[2021-05-30] MEDS: MEROPENEM 1GM IVPB 100 ML IV SCH ×2 (00:25→12:22)
[2021-05-30] MEDS ORDERED: PHENYLEPHRINE HCL 10 MG/ML VL ONE (03:16)
[2021-05-30] MEDS ORDERED: PHENYLEPHRINE IV 250 ML IV ONE (03:16)
[2021-05-30 04:24] LABS: Basophils # (auto) 0 10 ^3/uL (0-0.2); Eosinophils # (auto) 0 10 ^3/uL (0-0.8); Eosinophils % (auto) 0.1 % (0.0-7.0); Hemoglobin 8.1 g/dL (13.5-17.5); Mean Corpuscular Hgb Conc. 30.8 g/dL (32.0-36.0); Nucleated Red Blood Cells % 2.6 %
[2021-05-30 04:28] LABS: Basophils % (auto) 0.1 % (0.0-2.0); Hematocrit 26.2 % (41.0-53.0); Lymphocytes # (auto) 0.6 10 ^3/uL (0.4-5.4); Mean Corpuscular Hemoglobin 29.3 pg (28.0-32.0); Mean Corpuscular Volume 95.2 fL (80.0-100.0); Monocytes # (auto) 1.2 10 ^3/uL (0-1.3); Monocytes % (auto) 6.2 % (0.0-12.0); Neutrophils # (auto) 17.1 10 ^3/uL (1.6-8.6); Neutrophils % (auto) 90.6 % (37.0-80.0); Red Blood Cells 2.75 10^6/uL (4.5-5.90); Red Cell Distribution Width 16.3 % (11.8-14.3); White Blood Cell 18.9 10^3/uL (4.4-10.8)
[2021-05-30 04:42] LABS: INR 1.05 (0.9-1.15); Partial Thromboplastin Time 32.5 sec (23.6-33.0)
[2021-05-30 04:48] LABS: Potassium 4.7 mmol/L (3.5-5.1)
[2021-05-30 04:55] LABS: BUN/Creatinine Ratio 21.8; Calcium 7.3 mg/dL (8.5-10.1)
[2021-05-30] MEDS: NOREPINEPHRINE BITARTRATE 16 MG in SODIUM CHL 0.9% 234 ML IV SCH ×2 (05:28→15:04)
[2021-05-30] MEDS: fentaNYL Drip 2500mCg/250mlNS 250 ML IV SCH ×3 (05:30→19:20)
[2021-05-30] MEDS: VASOPRESSIN 50 UNITS in D5W 5% 247.5 ML IV SCH (08:30)
[2021-05-30] MEDS: BUDESONIDE (INHALATION) 0.5 MG/2 ML NEB NEB SCH ×2 (08:45→22:35)
[2021-05-30] MEDS: ZINC SULFATE 220mg CAP or TAB PO SCH (10:14)
[2021-05-30] MEDS: ASCORBIC ACID 1,000 MG TAB PO SCH (10:14)
[2021-05-30] MEDS: PANTOPRAZOLE 40 MG/10 ML VIAL INJ IV SCH (10:14)
[2021-05-30] MEDS: CHOLECALCIFEROL (VITD3) 2,000 UNIT CAP/TAB PO SCH (10:14)
[2021-05-30] MEDS: PHENYLEPHRINE INJ 80 MG in SODIUM CHL 0.9% 242 ML IV SCH ×2 (10:15→18:25)
[2021-05-30] MEDS: EPINEPHrine HCL 250 ML IV SCH (12:30)
[2021-05-30] MEDS ORDERED: SODIUM CHLORIDE 0.9% 1,000 ML IV ONE (18:00)
[2021-05-30] MEDS: MICAFUNGIN SODIUM 100 MG in SODIUM CHL 0.9% 100 ML IV SCH (22:11)
[2021-05-30] MEDS: FONDAPARINUX SOD 2.5mg/0.5ml SYRINGE SC SCH (22:12)
[2021-05-30] MEDS: ALBUTEROL SULF 2.5 MG/0.5ML(0.5%) NEB SOLN NEB PRN (22:35)
[2021-05-31] VITALS (54 sets, daily range): BP systolic 71–122; BP diastolic 45–86
[2021-05-31] MEDS ORDERED: PHENYLEPHRINE HCL 10 MG/ML VL ONE (00:08)
[2021-05-31] MEDS ORDERED: PHENYLEPHRINE IV 250 ML IV ONE (00:08)
[2021-05-31] MEDS: MEROPENEM 1GM IVPB 100 ML IV SCH ×2 (00:39→12:00)
[2021-05-31] MEDS: fentaNYL Drip 2500mCg/250mlNS 250 ML IV SCH ×2 (03:21→11:35)
[2021-05-31] MEDS: BUDESONIDE (INHALATION) 0.5 MG/2 ML NEB NEB SCH ×2 (06:25→21:47)
[2021-05-31] MEDS: ALBUTEROL SULF 2.5 MG/0.5ML(0.5%) NEB SOLN NEB PRN ×2 (06:25→21:47)
[2021-05-31 06:40] LABS: Hematocrit 24.2 % (41.0-53.0); Hemoglobin 7.5 g/dL (13.5-17.5); Nucleated Red Blood Cells % 1.7 %; Red Blood Cells 2.57 10^6/uL (4.5-5.90)
[2021-05-31 06:42] LABS: Basophils # (auto) 0 10 ^3/uL (0-0.2); Basophils % (auto) 0.1 % (0.0-2.0); Eosinophils # (auto) 0.3 10 ^3/uL (0-0.8); Eosinophils % (auto) 1.5 % (0.0-7.0); Lymphocytes % (auto) 4.6 % (10.0-50.0); Mean Corpuscular Hemoglobin 29.1 pg (28.0-32.0); Mean Corpuscular Hgb Conc. 30.8 g/dL (32.0-36.0); Mean Corpuscular Volume 94.4 fL (80.0-100.0); Monocytes # (auto) 1.5 10 ^3/uL (0-1.3); Monocytes % (auto) 6.8 % (0.0-12.0); Neutrophils # (auto) 18.6 10 ^3/uL (1.6-8.6); White Blood Cell 21.4 10^3/uL (4.4-10.8)
[2021-05-31 06:59] LABS: BUN/Creatinine Ratio 19.5; Calcium 7.6 mg/dL (8.5-10.1); Potassium 4.7 mmol/L (3.5-5.1)
[2021-05-31] MEDS: PROPOFOL 100 ML IV SCH (08:00)
[2021-05-31] MEDS: MIDAZOLAM DRIP 50 mg/50mL 50 ML IV SCH ×2 (08:01→11:49)
[2021-05-31] MEDS: VASOPRESSIN 50 UNITS in D5W 5% 247.5 ML IV SCH (08:30)
[2021-05-31] MEDS: ZINC SULFATE 220mg CAP or TAB PO SCH (09:31)
[2021-05-31] MEDS: PANTOPRAZOLE 40 MG/10 ML VIAL INJ IV SCH (09:31)
[2021-05-31] MEDS: CHOLECALCIFEROL (VITD3) 2,000 UNIT CAP/TAB PO SCH (09:32)
[2021-05-31] MEDS: EPINEPHrine HCL 250 ML IV SCH (12:30)
[2021-05-31] MEDS ORDERED: FUROSEMIDE 40 MG/4 ML VIAL IV ONE (15:30)
[2021-05-31 16:28] LABS: Calcium 7.6 mg/dL (8.5-10.1); Potassium 4.6 mmol/L (3.5-5.1)
[2021-05-31 16:30] LABS: BUN/Creatinine Ratio 18.9
[2021-05-31 16:46] LABS: Creatinine, Urine 18 mg/dL (30.0-125.0); Sodium Urine 123 mmol/L (40-220)
[2021-05-31] MEDS: PHENYLEPHRINE INJ 80 MG in SODIUM CHL 0.9% 242 ML IV SCH (17:37)
[2021-05-31] MEDS: ASCORBIC ACID 1,000 MG TAB PO SCH (17:55)
[2021-05-31] MEDS: MICAFUNGIN SODIUM 100 MG in SODIUM CHL 0.9% 100 ML IV SCH (22:40)
[2021-05-31] MEDS: FONDAPARINUX SOD 2.5mg/0.5ml SYRINGE SC SCH (22:41)
[2021-06-01] MEDS: MEROPENEM 1GM IVPB 100 ML IV SCH ×2 (00:15→12:05)
[2021-06-01] MEDS: NOREPINEPHRINE BITARTRATE 16 MG in SODIUM CHL 0.9% 234 ML IV SCH ×2 (02:30→15:04)
[2021-06-01 02:49] VITALS: BP 116/66
[2021-06-01] MEDS: fentaNYL Drip 2500mCg/250mlNS 250 ML IV SCH (04:10)
[2021-06-01] MEDS ORDERED: FUROSEMIDE 40 MG/4 ML VIAL IV SCH (06:00)
[2021-06-01 06:06] LABS: BUN/Creatinine Ratio 18.3; Basophils # (auto) 0 10 ^3/uL (0-0.2); Calcium 7.2 mg/dL (8.5-10.1); Eosinophils # (auto) 0.3 10 ^3/uL (0-0.8); Hemoglobin 7.2 g/dL (13.5-17.5); Lymphocytes # (auto) 0.7 10 ^3/uL (0.4-5.4); Potassium 4.7 mmol/L (3.5-5.1)
[2021-06-01 06:10] LABS: Basophils % (auto) 0.2 % (0.0-2.0); Eosinophils % (auto) 1.5 % (0.0-7.0); Hematocrit 23.2 % (41.0-53.0); Lymphocytes % (auto) 3.5 % (10.0-50.0); Mean Corpuscular Hemoglobin 28.8 pg (28.0-32.0); Mean Corpuscular Hgb Conc. 30.9 g/dL (32.0-36.0); Mean Corpuscular Volume 93.2 fL (80.0-100.0); Monocytes # (auto) 0.8 10 ^3/uL (0-1.3); Monocytes % (auto) 4.1 % (0.0-12.0); Neutrophils # (auto) 18.2 10 ^3/uL (1.6-8.6); Neutrophils % (auto) 90.7 % (37.0-80.0); Red Blood Cells 2.49 10^6/uL (4.5-5.90); Red Cell Distribution Width 17.2 % (11.8-14.3); White Blood Cell 20.1 10^3/uL (4.4-10.8)
[2021-06-01 06:59] VITALS: BP 105/51
[2021-06-01] MEDS: PROPOFOL 100 ML IV SCH (07:00)
[2021-06-01] MEDS: MIDAZOLAM DRIP 50 mg/50mL 50 ML IV SCH (08:22)
[2021-06-01] MEDS: VASOPRESSIN 50 UNITS in D5W 5% 247.5 ML IV SCH (08:30)
[2021-06-01] MEDS: PHENYLEPHRINE INJ 80 MG in SODIUM CHL 0.9% 242 ML IV SCH (09:21)
[2021-06-01] MEDS: CHOLECALCIFEROL (VITD3) 2,000 UNIT CAP/TAB PO SCH (09:37)
[2021-06-01] MEDS: ZINC SULFATE 220mg CAP or TAB PO SCH (09:37)
[2021-06-01] MEDS: ASCORBIC ACID 1,000 MG TAB PO SCH (09:37)
[2021-06-01] MEDS: PANTOPRAZOLE 40 MG/10 ML VIAL INJ IV SCH (09:37)
[2021-06-01] MEDS: BUDESONIDE (INHALATION) 0.5 MG/2 ML NEB NEB SCH ×2 (10:12→22:10)
[2021-06-01 10:19] VITALS: BP 105/55
[2021-06-01] MEDS ORDERED: ALBUMIN 25% 50 ML IV ONE (10:30)
[2021-06-01] MEDS: FUROSEMIDE INJECTION 100 MG in SODIUM CHL 0.9% 100 ML IV SCH ×2 (11:35→20:30)
[2021-06-01] MEDS: EPINEPHrine HCL 250 ML IV SCH (12:30)
[2021-06-01 15:00] VITALS: BP 116/55
[2021-06-01 18:53] VITALS: BP 105/62
[2021-06-01 22:10] VITALS: BP 114/69
[2021-06-01] MEDS: ALBUTEROL SULF 2.5 MG/0.5ML(0.5%) NEB SOLN NEB PRN (22:10)
[2021-06-01] MEDS: FONDAPARINUX SOD 2.5mg/0.5ml SYRINGE SC SCH (22:32)
[2021-06-01] MEDS: MICAFUNGIN SODIUM 100 MG in SODIUM CHL 0.9% 100 ML IV SCH (22:32)
[2021-06-02] VITALS (32 sets, daily range): BP systolic 92–116; BP diastolic 45–68
[2021-06-02] MEDS: MEROPENEM 1GM IVPB 100 ML IV SCH ×2 (00:31→12:22)
[2021-06-02] MEDS: FUROSEMIDE INJECTION 100 MG in SODIUM CHL 0.9% 100 ML IV SCH ×4 (06:30→19:24)
[2021-06-02] MEDS: PROPOFOL 100 ML IV SCH (07:00)
[2021-06-02 07:01] LABS: Calcium 7.7 mg/dL (8.5-10.1); Potassium 4.7 mmol/L (3.5-5.1)
[2021-06-02 07:04] LABS: BUN/Creatinine Ratio 17.8
[2021-06-02 07:28] LABS: Basophils # (auto) 0.2 10 ^3/uL (0-0.2); Basophils % (auto) 1.4 % (0.0-2.0); Eosinophils # (auto) 0.4 10 ^3/uL (0-0.8); Eosinophils % (auto) 2.7 % (0.0-7.0); Hematocrit 23.2 % (41.0-53.0); Hemoglobin 7.2 g/dL (13.5-17.5); Lymphocytes # (auto) 0.8 10 ^3/uL (0.4-5.4); Lymphocytes % (auto) 4.8 % (10.0-50.0); Mean Corpuscular Hemoglobin 28.8 pg (28.0-32.0); Mean Corpuscular Hgb Conc. 31.1 g/dL (32.0-36.0); Mean Corpuscular Volume 92.3 fL (80.0-100.0); Monocytes # (auto) 0.7 10 ^3/uL (0-1.3); Neutrophils # (auto) 14.4 10 ^3/uL (1.6-8.6); Neutrophils % (auto) 87.1 % (37.0-80.0); Nucleated Red Blood Cells % 1.4 %; Red Blood Cells 2.52 10^6/uL (4.5-5.90); Red Cell Distribution Width 17.1 % (11.8-14.3); White Blood Cell 16.5 10^3/uL (4.4-10.8)
[2021-06-02] MEDS: VASOPRESSIN 50 UNITS in D5W 5% 247.5 ML IV SCH (08:30)
[2021-06-02] MEDS: ALBUTEROL SULF 2.5 MG/0.5ML(0.5%) NEB SOLN NEB PRN ×2 (09:07→22:17)
[2021-06-02] MEDS: ASCORBIC ACID 1,000 MG TAB PO SCH (09:12)
[2021-06-02] MEDS: CHOLECALCIFEROL (VITD3) 2,000 UNIT CAP/TAB PO SCH (09:12)
[2021-06-02] MEDS: ZINC SULFATE 220mg CAP or TAB PO SCH (09:12)
[2021-06-02] MEDS: PANTOPRAZOLE 40 MG/10 ML VIAL INJ IV SCH (09:12)
[2021-06-02] MEDS: MIDAZOLAM DRIP 50 mg/50mL 50 ML IV SCH ×2 (09:13→15:36)
[2021-06-02] MEDS: fentaNYL Drip 2500mCg/250mlNS 250 ML IV SCH ×2 (09:14→19:25)
[2021-06-02] MEDS: EPINEPHrine HCL 250 ML IV SCH (12:30)
[2021-06-02] MEDS: ALBUMIN 25% 100 ML IV PRN ×2 (14:51→15:43)
[2021-06-02] MEDS: PHENYLEPHRINE INJ 80 MG in SODIUM CHL 0.9% 242 ML IV SCH (15:02)
[2021-06-02] MEDS: BUDESONIDE (INHALATION) 0.5 MG/2 ML NEB NEB SCH (22:17)
[2021-06-02] MEDS: MICAFUNGIN SODIUM 100 MG in SODIUM CHL 0.9% 100 ML IV SCH (23:49)
[2021-06-03] VITALS (51 sets, daily range): BP systolic 68–125; BP diastolic 39–69
[2021-06-03] MEDS: FUROSEMIDE INJECTION 100 MG in SODIUM CHL 0.9% 100 ML IV SCH ×5 (00:45→20:45)
[2021-06-03] MEDS: MEROPENEM 1GM IVPB 100 ML IV SCH ×2 (01:04→14:48)
[2021-06-03 06:28] LABS: BUN/Creatinine Ratio 14.7; Calcium 7.8 mg/dL (8.5-10.1); Potassium 4.8 mmol/L (3.5-5.1)
[2021-06-03] MEDS: BUDESONIDE (INHALATION) 0.5 MG/2 ML NEB NEB SCH ×2 (06:59→22:16)
[2021-06-03] MEDS: MIDAZOLAM DRIP 50 mg/50mL 50 ML IV SCH (07:00)
[2021-06-03] MEDS: PROPOFOL 100 ML IV SCH (07:00)
[2021-06-03] MEDS: PANTOPRAZOLE 40 MG/10 ML VIAL INJ IV SCH (09:07)
[2021-06-03] MEDS: ZINC SULFATE 220mg CAP or TAB PO SCH (09:07)
[2021-06-03] MEDS: CHOLECALCIFEROL (VITD3) 2,000 UNIT CAP/TAB PO SCH (09:08)
[2021-06-03] MEDS: ASCORBIC ACID 1,000 MG TAB PO SCH (09:08)
[2021-06-03 09:27] LABS: Basophils # (auto) 0.1 10 ^3/uL (0-0.2); Eosinophils # (auto) 0.4 10 ^3/uL (0-0.8); Mean Corpuscular Hemoglobin 28.5 pg (28.0-32.0)
[2021-06-03 09:28] LABS: Basophils % (auto) 0.9 % (0.0-2.0); Eosinophils % (auto) 2.9 % (0.0-7.0); Hematocrit 22.1 % (41.0-53.0); Lymphocytes # (auto) 0.5 10 ^3/uL (0.4-5.4); Lymphocytes % (auto) 3.4 % (10.0-50.0); Mean Corpuscular Hgb Conc. 30.3 g/dL (32.0-36.0); Mean Corpuscular Volume 94.1 fL (80.0-100.0); Monocytes # (auto) 0.6 10 ^3/uL (0-1.3); Monocytes % (auto) 4.1 % (0.0-12.0); Neutrophils # (auto) 12.4 10 ^3/uL (1.6-8.6); Neutrophils % (auto) 88.7 % (37.0-80.0); Red Blood Cells 2.35 10^6/uL (4.5-5.90); Red Cell Distribution Width 17.9 % (11.8-14.3)
[2021-06-03 09:30] LABS: Nucleated Red Blood Cells % 4.9 %
[2021-06-03 09:34] LABS: Hemoglobin 6.7 g/dL (13.5-17.5)
[2021-06-03] MEDS: EPINEPHrine HCL 250 ML IV SCH (12:30)
[2021-06-03] MEDS: VASOPRESSIN 50 UNITS in D5W 5% 247.5 ML IV SCH (14:43)
[2021-06-03] MEDS: PHENYLEPHRINE INJ 80 MG in SODIUM CHL 0.9% 242 ML IV SCH ×2 (14:46→23:11)
[2021-06-03] MEDS: NOREPINEPHRINE BITARTRATE 16 MG in SODIUM CHL 0.9% 234 ML IV SCH ×2 (14:48→21:19)
[2021-06-03] MEDS ORDERED: fentaNYL Drip 2500mCg/250mlNS 250 ML IV ONE (17:50)
[2021-06-03] MEDS ORDERED: EPINEPHrine HCL 250 ML IV ONE (18:27)
[2021-06-03] MEDS: ALBUTEROL SULF 2.5 MG/0.5ML(0.5%) NEB SOLN NEB PRN (22:16)
[2021-06-03] MEDS: MICAFUNGIN SODIUM 100 MG in SODIUM CHL 0.9% 100 ML IV SCH (22:47)
[2021-06-04] VITALS (47 sets, daily range): BP systolic 88–149; BP diastolic 47–92
[2021-06-04] MEDS: MIDAZOLAM DRIP 50 mg/50mL 50 ML IV SCH ×3 (01:30→09:45)
[2021-06-04] MEDS ORDERED: MEROPENEM 1GM IVPB 100 ML IV ONE (01:34)
[2021-06-04] MEDS: MEROPENEM 1GM IVPB 100 ML IV SCH ×3 (02:01→13:05)
[2021-06-04] MEDS: VASOPRESSIN 50 UNITS in D5W 5% 247.5 ML IV SCH ×2 (02:24→21:04)
[2021-06-04 05:32] LABS: Mean Corpuscular Hemoglobin 28.9 pg (28.0-32.0); Mean Corpuscular Hgb Conc. 30.5 g/dL (32.0-36.0); Red Blood Cells 2.36 10^6/uL (4.5-5.90)
[2021-06-04 05:33] LABS: Calcium 7.9 mg/dL (8.5-10.1); Hematocrit 22.4 % (41.0-53.0); Mean Corpuscular Volume 94.8 fL (80.0-100.0); Potassium 5.1 mmol/L (3.5-5.1); Red Cell Distribution Width 18.3 % (11.8-14.3); White Blood Cell 16.1 10^3/uL (4.4-10.8)
[2021-06-04] MEDS: NOREPINEPHRINE BITARTRATE 16 MG in SODIUM CHL 0.9% 234 ML IV SCH ×2 (05:35→21:08)
[2021-06-04 05:36] LABS: BUN/Creatinine Ratio 15.2
[2021-06-04 06:00] LABS: Hemoglobin 6.8 g/dL (13.5-17.5)
[2021-06-04 06:01] LABS: Basophils % (manual) 0 (0.0-2.0); Blast Cells 0; Metamyelocytes % 0; Promyelocytes % 0; Reactive Lymphocytes 0
[2021-06-04] MEDS: ALBUTEROL SULF 2.5 MG/0.5ML(0.5%) NEB SOLN NEB PRN ×2 (06:19→22:17)
[2021-06-04] MEDS: BUDESONIDE (INHALATION) 0.5 MG/2 ML NEB NEB SCH ×2 (06:20→22:17)
[2021-06-04 06:58] LABS: Band Neutrophils % (manual) 47; Eosinophils % (manual) 2 (0-7); Lymphocytes % (manual) 1 (10.0-50.0); Monocytes % (manual) 3 (0-12); Myelocytes % 3
[2021-06-04] MEDS: FUROSEMIDE INJECTION 100 MG in SODIUM CHL 0.9% 100 ML IV SCH ×3 (07:00→16:45)
[2021-06-04] MEDS: PROPOFOL 100 ML IV SCH (07:00)
[2021-06-04] MEDS ORDERED: SODIUM CHL 0.9% 1000 ML BAG XX ONE ×2 (07:00)
[2021-06-04] MEDS: PANTOPRAZOLE 40 MG/10 ML VIAL INJ IV SCH (09:52)
[2021-06-04] MEDS: ZINC SULFATE 220mg CAP or TAB PO SCH (09:52)
[2021-06-04] MEDS: CHOLECALCIFEROL (VITD3) 2,000 UNIT CAP/TAB PO SCH (09:52)
[2021-06-04] MEDS: ASCORBIC ACID 1,000 MG TAB PO SCH (09:52)
[2021-06-04] MEDS: EPINEPHrine HCL 250 ML IV SCH (20:11)
[2021-06-04] MEDS ORDERED: EPOETIN ALFA-EPBX 10,000 UNIT/1ML VIAL SC ONE ×2 (21:00)
[2021-06-04] MEDS: MICAFUNGIN SODIUM 100 MG in SODIUM CHL 0.9% 100 ML IV SCH (21:03)
[2021-06-05] VITALS (28 sets, daily range): BP systolic 82–125; BP diastolic 45–78
[2021-06-05] MEDS: MEROPENEM 1GM IVPB 100 ML IV SCH ×3 (00:53→23:13)
[2021-06-05 05:07] LABS: BUN/Creatinine Ratio 13.8; Calcium 7.8 mg/dL (8.5-10.1); Potassium 4.5 mmol/L (3.5-5.1)
[2021-06-05] MEDS: BUDESONIDE (INHALATION) 0.5 MG/2 ML NEB NEB SCH ×2 (06:00→19:23)
[2021-06-05] MEDS: ALBUTEROL SULF 2.5 MG/0.5ML(0.5%) NEB SOLN NEB PRN ×2 (06:13→19:23)
[2021-06-05 06:30] LABS: Mean Corpuscular Volume 93.2 fL (80.0-100.0)
[2021-06-05 06:34] LABS: Hematocrit 21.2 % (41.0-53.0); Mean Corpuscular Hemoglobin 28.3 pg (28.0-32.0); Mean Corpuscular Hgb Conc. 30.4 g/dL (32.0-36.0); Red Blood Cells 2.28 10^6/uL (4.5-5.90); Red Cell Distribution Width 18.5 % (11.8-14.3); White Blood Cell 17.9 10^3/uL (4.4-10.8)
[2021-06-05 06:47] LABS: Hemoglobin 6.4 g/dL (13.5-17.5)
[2021-06-05 06:48] LABS: Basophils % (manual) 0 (0.0-2.0); Blast Cells 0; Promyelocytes % 0; Reactive Lymphocytes 0
[2021-06-05] MEDS: PHENYLEPHRINE INJ 80 MG in SODIUM CHL 0.9% 242 ML IV SCH (08:00)
[2021-06-05 08:32] LABS: Band Neutrophils % (manual) 18; Eosinophils % (manual) 2 (0-7); Lymphocytes % (manual) 5 (10.0-50.0); Metamyelocytes % 1; Monocytes % (manual) 6 (0-12); Myelocytes % 2
[2021-06-05] MEDS: PROPOFOL 100 ML IV SCH (10:00)
[2021-06-05] MEDS: MIDAZOLAM DRIP 50 mg/50mL 50 ML IV SCH ×2 (10:00→21:11)
[2021-06-05] MEDS: CHOLECALCIFEROL (VITD3) 2,000 UNIT CAP/TAB PO SCH (10:14)
[2021-06-05] MEDS: PANTOPRAZOLE 40 MG/10 ML VIAL INJ IV SCH (10:14)
[2021-06-05] MEDS: ASCORBIC ACID 1,000 MG TAB PO SCH (10:14)
[2021-06-05] MEDS: ZINC SULFATE 220mg CAP or TAB PO SCH (10:15)
[2021-06-05] MEDS: VASOPRESSIN 50 UNITS in D5W 5% 247.5 ML IV SCH ×2 (12:05→23:15)
[2021-06-05] MEDS: HYDROCORTISONE SOD SUCC 100 MG/2ML INJ VIAL IV SCH ×2 (16:00→21:11)
[2021-06-05 16:48] LABS: Hemoglobin 7.8 g/dL (13.5-17.5)
[2021-06-05 16:49] LABS: Hematocrit 24.7 % (41.0-53.0); Mean Corpuscular Hemoglobin 29.1 pg (28.0-32.0); Mean Corpuscular Hgb Conc. 31.6 g/dL (32.0-36.0); Mean Corpuscular Volume 92.2 fL (80.0-100.0); Red Blood Cells 2.68 10^6/uL (4.5-5.90); Red Cell Distribution Width 17.9 % (11.8-14.3); White Blood Cell 18.7 10^3/uL (4.4-10.8)
[2021-06-05 16:52] LABS: Basophils % (manual) 0 (0.0-2.0); Blast Cells 0; Promyelocytes % 0; Reactive Lymphocytes 0
[2021-06-05] MEDS: EPINEPHrine HCL 250 ML IV SCH (17:55)
[2021-06-05 17:59] LABS: Band Neutrophils % (manual) 1; Eosinophils % (manual) 1 (0-7); Lymphocytes % (manual) 4 (10.0-50.0); Metamyelocytes % 4; Monocytes % (manual) 5 (0-12); Myelocytes % 2
[2021-06-05] MEDS ORDERED: HYDROCORTISONE SOD SUCC 100 MG/2ML INJ VIAL ONE (20:52)
[2021-06-05] MEDS: MICAFUNGIN SODIUM 100 MG in SODIUM CHL 0.9% 100 ML IV SCH (21:12)
[2021-06-06] VITALS (33 sets, daily range): BP systolic 84–134; BP diastolic 44–69
[2021-06-06 01:22] LABS: Hematocrit 24.9 % (41.0-53.0); Hemoglobin 7.8 g/dL (13.5-17.5); Mean Corpuscular Hgb Conc. 31.2 g/dL (32.0-36.0); Mean Corpuscular Volume 92.8 fL (80.0-100.0); Red Blood Cells 2.68 10^6/uL (4.5-5.90); Red Cell Distribution Width 18.2 % (11.8-14.3); White Blood Cell 21.2 10^3/uL (4.4-10.8)
[2021-06-06 01:24] LABS: Basophils % (manual) 0 (0.0-2.0); Blast Cells 0; Reactive Lymphocytes 0
[2021-06-06] MEDS: MIDAZOLAM DRIP 50 mg/50mL 50 ML IV SCH ×2 (03:41→15:30)
[2021-06-06 04:24] LABS: Hematocrit 24.7 % (41.0-53.0); Hemoglobin 7.6 g/dL (13.5-17.5)
[2021-06-06 04:27] LABS: BUN/Creatinine Ratio 14.9; Calcium 7.7 mg/dL (8.5-10.1); Mean Corpuscular Hemoglobin 28.7 pg (28.0-32.0); Mean Corpuscular Hgb Conc. 30.9 g/dL (32.0-36.0); Potassium 4.7 mmol/L (3.5-5.1); Red Blood Cells 2.66 10^6/uL (4.5-5.90); Red Cell Distribution Width 17.5 % (11.8-14.3); White Blood Cell 19.7 10^3/uL (4.4-10.8)
[2021-06-06 05:03] LABS: Basophils % (manual) 0 (0.0-2.0); Blast Cells 0; Reactive Lymphocytes 0
[2021-06-06] MEDS: ALBUTEROL SULF 2.5 MG/0.5ML(0.5%) NEB SOLN NEB PRN ×2 (06:07→22:09)
[2021-06-06] MEDS: BUDESONIDE (INHALATION) 0.5 MG/2 ML NEB NEB SCH ×2 (06:08→22:10)
[2021-06-06] MEDS: HYDROCORTISONE SOD SUCC 100 MG/2ML INJ VIAL IV SCH ×3 (06:47→22:31)
[2021-06-06] MEDS: PROPOFOL 100 ML IV SCH (07:00)
[2021-06-06 07:09] LABS: Band Neutrophils % (manual) 4; Eosinophils % (manual) 1 (0-7); Lymphocytes % (manual) 2 (10.0-50.0); Metamyelocytes % 1; Monocytes % (manual) 2 (0-12); Myelocytes % 3; Promyelocytes % 1
[2021-06-06 07:18] LABS: Band Neutrophils % (manual) 4; Eosinophils % (manual) 1 (0-7); Lymphocytes % (manual) 2 (10.0-50.0); Metamyelocytes % 1; Monocytes % (manual) 2 (0-12); Myelocytes % 3; Promyelocytes % 1
[2021-06-06] MEDS: NOREPINEPHRINE BITARTRATE 16 MG in SODIUM CHL 0.9% 234 ML IV SCH ×2 (08:40→17:53)
[2021-06-06] MEDS: PHENYLEPHRINE INJ 80 MG in SODIUM CHL 0.9% 242 ML IV SCH (08:40)
[2021-06-06] MEDS: FUROSEMIDE INJECTION 100 MG in SODIUM CHL 0.9% 100 ML IV SCH ×4 (08:45→23:45)
[2021-06-06] MEDS ORDERED: ALBUMIN 25% 100 ML IV PRN (10:30)
[2021-06-06] MEDS ORDERED: CEFAZOLIN IP SCH (12:00)
[2021-06-06] MEDS ORDERED: PERITONEAL DIALYSIS 1.5% IP SCH (12:00)
[2021-06-06] MEDS: EPINEPHrine HCL 250 ML IV SCH (12:30)
[2021-06-06] MEDS: PANTOPRAZOLE 40 MG/10 ML VIAL INJ IV SCH (13:30)
[2021-06-06] MEDS: MICAFUNGIN SODIUM 100 MG in SODIUM CHL 0.9% 100 ML IV SCH (22:31)
[2021-06-07] VITALS (51 sets, daily range): BP systolic 81–129; BP diastolic 46–94
[2021-06-07] MEDS: FUROSEMIDE INJECTION 100 MG in SODIUM CHL 0.9% 100 ML IV SCH ×2 (04:45→08:35)
[2021-06-07 04:49] LABS: Eosinophils # (auto) 0 10 ^3/uL (0-0.8); Eosinophils % (auto) 0.2 % (0.0-7.0)
[2021-06-07 04:53] LABS: Basophils # (auto) 0.1 10 ^3/uL (0-0.2); Basophils % (auto) 0.4 % (0.0-2.0); Hematocrit 24.6 % (41.0-53.0); Hemoglobin 7.9 g/dL (13.5-17.5); Lymphocytes # (auto) 3.3 10 ^3/uL (0.4-5.4); Lymphocytes % (auto) 16.9 % (10.0-50.0); Mean Corpuscular Hemoglobin 29.8 pg (28.0-32.0); Mean Corpuscular Volume 93.1 fL (80.0-100.0); Monocytes # (auto) 0.9 10 ^3/uL (0-1.3); Monocytes % (auto) 4.7 % (0.0-12.0); Neutrophils # (auto) 15.1 10 ^3/uL (1.6-8.6); Neutrophils % (auto) 77.8 % (37.0-80.0); Red Blood Cells 2.65 10^6/uL (4.5-5.90); Red Cell Distribution Width 18.5 % (11.8-14.3); White Blood Cell 19.4 10^3/uL (4.4-10.8)
[2021-06-07 05:16] LABS: Calcium 8.1 mg/dL (8.5-10.1); Potassium 4.7 mmol/L (3.5-5.1)
[2021-06-07 05:21] LABS: BUN/Creatinine Ratio 14.6
[2021-06-07 05:25] LABS: Nucleated Red Blood Cells % 19.8 %
[2021-06-07] MEDS: MIDAZOLAM DRIP 50 mg/50mL 50 ML IV SCH ×2 (05:41→10:46)
[2021-06-07] MEDS: ALBUTEROL SULF 2.5 MG/0.5ML(0.5%) NEB SOLN NEB PRN ×2 (06:31→18:43)
[2021-06-07] MEDS: HYDROCORTISONE SOD SUCC 100 MG/2ML INJ VIAL IV SCH ×3 (06:45→22:07)
[2021-06-07] MEDS ORDERED: SODIUM CHL 0.9% 1000 ML BAG XX ONE (07:00)
[2021-06-07] MEDS: PROPOFOL 100 ML IV SCH (07:00)
[2021-06-07] MEDS: PHENYLEPHRINE INJ 80 MG in SODIUM CHL 0.9% 242 ML IV SCH ×2 (07:30→13:55)
[2021-06-07] MEDS: VASOPRESSIN 50 UNITS in D5W 5% 247.5 ML IV SCH ×3 (08:35→19:57)
[2021-06-07] MEDS: EPINEPHrine HCL 250 ML IV SCH (08:36)
[2021-06-07] MEDS: PANTOPRAZOLE 40 MG/10 ML VIAL INJ IV SCH (10:45)
[2021-06-07] MEDS: NOREPINEPHRINE BITARTRATE 16 MG in SODIUM CHL 0.9% 234 ML IV SCH ×2 (10:47→19:56)
[2021-06-07] MEDS: ROCURONIUM 10MG/ML 10ML VIAL IV PRN (16:45)
[2021-06-07] MEDS: BUDESONIDE (INHALATION) 0.5 MG/2 ML NEB NEB SCH (18:43)
[2021-06-07] MEDS ORDERED: EPOETIN ALFA-EPBX 10,000 UNIT/1ML VIAL SC ONE (21:00)
[2021-06-07] MEDS: MICAFUNGIN SODIUM 100 MG in SODIUM CHL 0.9% 100 ML IV SCH (22:15)
[2021-06-08] VITALS (37 sets, daily range): BP systolic 86–127; BP diastolic 49–76
[2021-06-08] MEDS: MIDAZOLAM DRIP 50 mg/50mL 50 ML IV SCH ×4 (01:38→20:08)
[2021-06-08 04:48] LABS: Hemoglobin 7.3 g/dL (13.5-17.5)
[2021-06-08 04:51] LABS: Hematocrit 22.9 % (41.0-53.0); Mean Corpuscular Hemoglobin 29.5 pg (28.0-32.0); Mean Corpuscular Hgb Conc. 31.8 g/dL (32.0-36.0); Mean Corpuscular Volume 92.9 fL (80.0-100.0); Red Blood Cells 2.46 10^6/uL (4.5-5.90); Red Cell Distribution Width 18.7 % (11.8-14.3); White Blood Cell 21.3 10^3/uL (4.4-10.8)
[2021-06-08 05:13] LABS: BUN/Creatinine Ratio 13.6; Calcium 7.8 mg/dL (8.5-10.1); Potassium 4.1 mmol/L (3.5-5.1)
[2021-06-08 05:21] LABS: Basophils % (manual) 0 (0.0-2.0); Blast Cells 0; Eosinophils % (manual) 0 (0-7); Promyelocytes % 0; Reactive Lymphocytes 0
[2021-06-08] MEDS: HYDROCORTISONE SOD SUCC 100 MG/2ML INJ VIAL IV SCH ×3 (06:47→22:00)
[2021-06-08] MEDS: PROPOFOL 100 ML IV SCH (07:00)
[2021-06-08 07:46] LABS: Band Neutrophils % (manual) 17; Lymphocytes % (manual) 15 (10.0-50.0); Metamyelocytes % 3; Monocytes % (manual) 3 (0-12); Myelocytes % 4
[2021-06-08] MEDS: BUDESONIDE (INHALATION) 0.5 MG/2 ML NEB NEB SCH ×2 (10:00→22:55)
[2021-06-08] MEDS: PANTOPRAZOLE 40 MG/10 ML VIAL INJ IV SCH (10:37)
[2021-06-08] MEDS: EPINEPHrine HCL 250 ML IV SCH (12:30)
[2021-06-08] MEDS: NOREPINEPHRINE BITARTRATE 16 MG in SODIUM CHL 0.9% 234 ML IV SCH (14:45)
[2021-06-08] MEDS: PHENYLEPHRINE INJ 80 MG in SODIUM CHL 0.9% 242 ML IV SCH (14:45)
[2021-06-08] MEDS: VASOPRESSIN 50 UNITS in D5W 5% 247.5 ML IV SCH (20:48)
[2021-06-08] MEDS: MICAFUNGIN SODIUM 100 MG in SODIUM CHL 0.9% 100 ML IV SCH (20:53)
[2021-06-08] MEDS: ALBUTEROL SULF 2.5 MG/0.5ML(0.5%) NEB SOLN NEB PRN (22:55)
[2021-06-09] VITALS (52 sets, daily range): BP systolic 84–140; BP diastolic 52–79
[2021-06-09] MEDS: MIDAZOLAM DRIP 50 mg/50mL 50 ML IV SCH ×6 (01:25→23:25)
[2021-06-09 04:34] LABS: Hemoglobin 7.2 g/dL (13.5-17.5)
[2021-06-09 04:37] LABS: Hematocrit 22.9 % (41.0-53.0); Mean Corpuscular Hemoglobin 29.5 pg (28.0-32.0); Mean Corpuscular Hgb Conc. 31.5 g/dL (32.0-36.0); Mean Corpuscular Volume 93.7 fL (80.0-100.0); Red Blood Cells 2.44 10^6/uL (4.5-5.90); Red Cell Distribution Width 19.1 % (11.8-14.3); White Blood Cell 27.4 10^3/uL (4.4-10.8)
[2021-06-09 04:52] LABS: Calcium 7.7 mg/dL (8.5-10.1); Potassium 4.5 mmol/L (3.5-5.1)
[2021-06-09 04:54] LABS: BUN/Creatinine Ratio 14.3
[2021-06-09 05:15] LABS: Basophils % (manual) 0 (0.0-2.0); Blast Cells 0; Eosinophils % (manual) 0 (0-7); Metamyelocytes % 0; Promyelocytes % 0; Reactive Lymphocytes 0
[2021-06-09] MEDS: HYDROCORTISONE SOD SUCC 100 MG/2ML INJ VIAL IV SCH ×3 (06:00→21:02)
[2021-06-09] MEDS: NOREPINEPHRINE BITARTRATE 16 MG in SODIUM CHL 0.9% 234 ML IV SCH ×3 (06:29→23:51)
[2021-06-09] MEDS: PROPOFOL 100 ML IV SCH (07:00)
[2021-06-09] MEDS ORDERED: SODIUM CHL 0.9% 1000 ML BAG XX ONE (07:00)
[2021-06-09 07:11] LABS: Band Neutrophils % (manual) 15; Lymphocytes % (manual) 24 (10.0-50.0); Monocytes % (manual) 5 (0-12)
[2021-06-09 07:12] LABS: Myelocytes % 7
[2021-06-09] MEDS: BUDESONIDE (INHALATION) 0.5 MG/2 ML NEB NEB SCH ×2 (10:45→18:30)
[2021-06-09] MEDS: ALBUTEROL SULF 2.5 MG/0.5ML(0.5%) NEB SOLN NEB PRN ×2 (10:45→18:29)
[2021-06-09] MEDS: EPINEPHrine HCL 250 ML IV SCH ×2 (12:30→20:21)
[2021-06-09] MEDS: PANTOPRAZOLE 40 MG/10 ML VIAL INJ IV SCH (12:46)
[2021-06-09] MEDS: VASOPRESSIN 50 UNITS in D5W 5% 247.5 ML IV SCH ×2 (12:47→23:00)
[2021-06-09] MEDS: PHENYLEPHRINE INJ 80 MG in SODIUM CHL 0.9% 242 ML IV SCH ×2 (12:47→23:00)
[2021-06-09] MEDS ORDERED: VANCOMYCIN PER PHARMACY 0 MG IV SCH (15:00)
[2021-06-09] MEDS: MEROPENEM 500MG IVPB 50 ML IV SCH (15:18)
[2021-06-09] MEDS ORDERED: VANCOMYCIN 1GM/250ML 250 ML IV ONE (17:00)
[2021-06-09] MEDS ORDERED: EPOETIN ALFA-EPBX 10,000 UNIT/1ML VIAL SC ONE (21:00)
[2021-06-10] VITALS (43 sets, daily range): BP systolic 77–145; BP diastolic 44–71
[2021-06-10] MEDS: MEROPENEM 500MG IVPB 50 ML IV SCH (01:58)
[2021-06-10] MEDS: MIDAZOLAM DRIP 50 mg/50mL 50 ML IV SCH ×5 (03:08→23:57)
[2021-06-10 04:41] LABS: Hemoglobin 8.1 g/dL (13.5-17.5)
[2021-06-10 04:43] LABS: Mean Corpuscular Hemoglobin 29.4 pg (28.0-32.0); Mean Corpuscular Hgb Conc. 31.1 g/dL (32.0-36.0); Mean Corpuscular Volume 94.4 fL (80.0-100.0); Red Blood Cells 2.76 10^6/uL (4.5-5.90); Red Cell Distribution Width 18.4 % (11.8-14.3)
[2021-06-10 04:52] LABS: Calcium 7.3 mg/dL (8.5-10.1); Potassium 4.2 mmol/L (3.5-5.1)
[2021-06-10 05:51] LABS: White Blood Cell 34.8 10^3/uL (4.4-10.8)
[2021-06-10 05:52] LABS: Basophils % (manual) 0 (0.0-2.0); Blast Cells 0; Eosinophils % (manual) 0 (0-7); Promyelocytes % 0; Reactive Lymphocytes 0
[2021-06-10] MEDS: HYDROCORTISONE SOD SUCC 100 MG/2ML INJ VIAL IV SCH ×3 (06:00→22:07)
[2021-06-10] MEDS: PHENYLEPHRINE INJ 80 MG in SODIUM CHL 0.9% 242 ML IV SCH ×2 (06:48→22:32)
[2021-06-10] MEDS: NOREPINEPHRINE BITARTRATE 16 MG in SODIUM CHL 0.9% 234 ML IV SCH ×2 (06:48→22:32)
[2021-06-10] MEDS: PROPOFOL 100 ML IV SCH (07:00)
[2021-06-10] MEDS: ALBUTEROL SULF 2.5 MG/0.5ML(0.5%) NEB SOLN NEB PRN ×2 (07:44→18:11)
[2021-06-10] MEDS: BUDESONIDE (INHALATION) 0.5 MG/2 ML NEB NEB SCH ×2 (07:44→18:11)
[2021-06-10] MEDS ORDERED: SODIUM BICARBONATE 8.4 % INJ 50ML VIAL IV ONE ×2 (08:15→10:00)
[2021-06-10 08:57] LABS: Band Neutrophils % (manual) 9; Lymphocytes % (manual) 16 (10.0-50.0); Metamyelocytes % 3; Monocytes % (manual) 7 (0-12); Myelocytes % 4
[2021-06-10] MEDS: PANTOPRAZOLE 40 MG/10 ML VIAL INJ IV SCH (11:05)
[2021-06-10] MEDS: MEROPENEM 1GM IVPB 100 ML IV SCH (16:01)
[2021-06-11] VITALS (82 sets, daily range): BP systolic 78–153; BP diastolic 20–73
[2021-06-11] MEDS: MEROPENEM 1GM IVPB 100 ML IV SCH ×2 (03:00→16:21)
[2021-06-11] MEDS: PHENYLEPHRINE INJ 80 MG in SODIUM CHL 0.9% 242 ML IV SCH (04:31)
[2021-06-11] MEDS: MIDAZOLAM DRIP 50 mg/50mL 50 ML IV SCH ×5 (04:32→22:50)
[2021-06-11] MEDS: PROPOFOL 100 ML IV SCH (06:34)
[2021-06-11] MEDS: HYDROCORTISONE SOD SUCC 100 MG/2ML INJ VIAL IV SCH ×3 (06:34→22:16)
[2021-06-11] MEDS ORDERED: SODIUM CHL 0.9% 1000 ML BAG XX ONE ×2 (07:00)
[2021-06-11] MEDS: NOREPINEPHRINE BITARTRATE 16 MG in SODIUM CHL 0.9% 234 ML IV SCH ×2 (07:23→19:50)
[2021-06-11] MEDS ORDERED: SODIUM BICARBONATE 8.4 % INJ 50ML VIAL IV ONE (10:45)
[2021-06-11] MEDS ORDERED: DEXTROSE 50% SYRINGE 50 ML IV ONE (13:49)
[2021-06-11 14:57] LABS: Hemoglobin 7.1 g/dL (13.5-17.5)
[2021-06-11 14:59] LABS: Hematocrit 23.5 % (41.0-53.0)
[2021-06-11] MEDS: PANTOPRAZOLE 40 MG/10 ML VIAL INJ IV SCH (16:16)
[2021-06-11] MEDS: PHENYLEPHRINE IV 250 ML IV SCH ×3 (16:17→20:50)
[2021-06-11] MEDS ORDERED: PROPOFOL 100 ML IV SCH (16:30)
[2021-06-11] MEDS: VASOPRESSIN 50 UNITS in D5W 5% 247.5 ML IV SCH (19:00)
[2021-06-11] MEDS: EPINEPHrine HCL 250 ML IV SCH (19:00)
[2021-06-11] MEDS ORDERED: MORPHINE SULFATE 4 MG/ML SYR/VIAL IV ONE (20:45)
[2021-06-11] MEDS ORDERED: LORazepam 2MG/ML-1ML VIAL IV PRN (20:45)
[2021-06-11] MEDS ORDERED: LORazepam 2MG/ML-1ML VIAL IV ONE (20:45)
[2021-06-11] MEDS ORDERED: MORPHINE SULFATE 4 MG/ML SYR/VIAL IV PRN (20:45)
[2021-06-11] MEDS ORDERED: EPOETIN ALFA-EPBX 10,000 UNIT/1ML VIAL SC ONE ×2 (21:00)
[2021-06-11] MEDS: Jevity 1.2 Cal/Fiber 1 Liter GT SCH (22:15)
[2021-06-12] VITALS (22 sets, daily range): BP systolic 69–97; BP diastolic 21–43
[2021-06-12] MEDS ORDERED: DEXTROSE 50% SYRINGE 50 ML IV ONE (00:28)
[2021-06-12] MEDS ORDERED: DEXTROSE (50%) 50ML SYRG IV ONE (00:45)
[2021-06-12] MEDS: EPINEPHrine HCL 250 ML IV SCH ×2 (02:50→11:18)
[2021-06-12] MEDS: MEROPENEM 1GM IVPB 100 ML IV SCH (03:33)
[2021-06-12] MEDS: NOREPINEPHRINE BITARTRATE 16 MG in SODIUM CHL 0.9% 234 ML IV SCH (03:50)
[2021-06-12 04:34] LABS: Red Cell Distribution Width 18.9 % (11.8-14.3)
[2021-06-12 04:37] LABS: Hematocrit 21.1 % (41.0-53.0); Mean Corpuscular Hemoglobin 29.6 pg (28.0-32.0); Mean Corpuscular Hgb Conc. 30.6 g/dL (32.0-36.0); Mean Corpuscular Volume 96.5 fL (80.0-100.0); Red Blood Cells 2.18 10^6/uL (4.5-5.90)
[2021-06-12 04:50] LABS: Hemoglobin 6.5 g/dL (13.5-17.5); White Blood Cell 41.6 10^3/uL (4.4-10.8)
[2021-06-12 04:51] LABS: Basophils % (manual) 0 (0.0-2.0); Blast Cells 0; Eosinophils % (manual) 0 (0-7); Promyelocytes % 0; Reactive Lymphocytes 0
[2021-06-12 05:07] LABS: Albumin 1.6 g/dL (3.4-5.0); BUN/Creatinine Ratio 13.2; Potassium 5.1 mmol/L (3.5-5.1)
[2021-06-12 05:15] LABS: Total Protein 3.7 g/dL (6.4-8.2)
[2021-06-12 06:04] LABS: Band Neutrophils % (manual) 14; Lymphocytes % (manual) 8 (10.0-50.0); Metamyelocytes % 3; Monocytes % (manual) 7 (0-12); Myelocytes % 2
[2021-06-12] MEDS: HYDROCORTISONE SOD SUCC 100 MG/2ML INJ VIAL IV SCH (07:05)
[2021-06-12] MEDS ORDERED: PHENYLEPHRINE INJ 80 MG in SODIUM CHL 0.9% 242 ML IV SCH (08:45)
[2021-06-12] MEDS: VASOPRESSIN 50 UNITS in D5W 5% 247.5 ML IV SCH (11:19)
[2021-06-12] MEDS ORDERED: VANCOMYCIN 500 MG in D5W 5% 100 ML IV ONE (20:00)
== END 2021-06-12 12:20 | DRG 720 ==
LOC: ER 08:25 → OVERFLOW 11:21 → EAST 20:25 → TELE-EAST 05-04 17:53 → TELE-E-ADS 05-09 09:29 → ICU WEST 05-12 06:10
PROVIDERS: ADMIT Hospitalist; ATTEND Internal Medicine
PROC: XW033E5 Introduction of Remdesivir Anti-infective into Peripheral Vein, Percutaneous Approach, New Technology Group 5 (ICD-10-PCS; 2021-05-06)
PROC: 06HN33Z Insertion of Infusion Device into Left Femoral Vein, Percutaneous Approach (ICD-10-PCS; 2021-05-12)
PROC: 02HV33Z Insertion of Infusion Device into Superior Vena Cava, Percutaneous Approach (ICD-10-PCS; 2021-05-15)
PROC: B548ZZA Ultrasonography of Superior Vena Cava, Guidance (ICD-10-PCS; 2021-05-15)
PROC: 03HY32Z Insertion of Monitoring Device into Upper Artery, Percutaneous Approach (ICD-10-PCS; 2021-05-15)
PROC: 4A133B1 Monitoring of Arterial Pressure, Peripheral, Percutaneous Approach (ICD-10-PCS; 2021-05-15)
PROC: 4A133J1 Monitoring of Arterial Pulse, Peripheral, Percutaneous Approach (ICD-10-PCS; 2021-05-15)
PROC: 02HV33Z Insertion of Infusion Device into Superior Vena Cava, Percutaneous Approach (ICD-10-PCS; 2021-06-02)
PROC: B548ZZA Ultrasonography of Superior Vena Cava, Guidance (ICD-10-PCS; 2021-06-02)
PROC: 5A1D70Z Performance of Urinary Filtration, Intermittent, Less than 6 Hours Per Day (ICD-10-PCS; 2021-06-02)
PROC: 30233N1 Transfusion of Nonautologous Red Blood Cells into Peripheral Vein, Percutaneous Approach (ICD-10-PCS; 2021-06-03)
PROC: 5A1D70Z Performance of Urinary Filtration, Intermittent, Less than 6 Hours Per Day (ICD-10-PCS; 2021-06-04)
PROC: 5A1D70Z Performance of Urinary Filtration, Intermittent, Less than 6 Hours Per Day (ICD-10-PCS; 2021-06-07)
PROC: 5A0935A Assistance with Respiratory Ventilation, Less than 24 Consecutive Hours, High Flow/Velocity Cannula (ICD-10-PCS; 2021-06-08)
PROC: 5A1D70Z Performance of Urinary Filtration, Intermittent, Less than 6 Hours Per Day (ICD-10-PCS; 2021-06-09)
PROC: 5A1955Z Respiratory Ventilation, Greater than 96 Consecutive Hours (ICD-10-PCS; principal; 2021-06-11)
PROC: 0BH17EZ Insertion of Endotracheal Airway into Trachea, Via Natural or Artificial Opening (ICD-10-PCS; 2021-06-11)
PROC: 5A09357 Assistance with Respiratory Ventilation, Less than 24 Consecutive Hours, Continuous Positive Airway Pressure (ICD-10-PCS; 2021-06-11)
PROC: 5A1D70Z Performance of Urinary Filtration, Intermittent, Less than 6 Hours Per Day (ICD-10-PCS; 2021-06-11)
DX: A41.89 Other specified sepsis (principal); J96.01 Acute respiratory failure with hypoxia; N17.0 Acute kidney failure with tubular necrosis; J12.82 Pneumonia due to coronavirus disease 2019; R65.21 Severe sepsis with septic shock; D69.6 Thrombocytopenia, unspecified; U07.1 COVID-19; N18.6 End stage renal disease; I50.23 Acute on chronic systolic (congestive) heart failure; I82.432 Acute embolism and thrombosis of left popliteal vein; E66.9 Obesity, unspecified; E78.5 Hyperlipidemia, unspecified; J98.11 Atelectasis; E11.65 Type 2 diabetes mellitus with hyperglycemia; Z66 Do not resuscitate; D89.839 Cytokine release syndrome, grade unspecified; I82.442 Acute embolism and thrombosis of left tibial vein; E87.0 Hyperosmolality and hypernatremia; E87.5 Hyperkalemia; D64.9 Anemia, unspecified; E11.22 Type 2 diabetes mellitus with diabetic chronic kidney disease; Z68.39 Body mass index [BMI] 39.0-39.9, adult; Z99.2 Dependence on renal dialysis
CPT/HCPCS: 36415; 36600; 71045; 74018; 76775; 80048; 80053; 80202; 82306; 82565; 82570; 82728; 82805; 82962; 83036; 83605; 83615; 83735; 83970; 84100; 84132; 84300; 84443; 85007; 85014; 85018; 85025; 85027; 85379; 85610; 85730; 86141; 86803; 86850; 86900; 86901; 86920; 87040; 87070; 87086; 87088; 87205; 87340; 87426; 90935; 93005; 93306; 93926; 93971; 94002; 94003; 94640; 94660; 96365; 96366; 96368; 96375; C9113; G0378; J0171; J0330; J0690; J0696; J1100; J1642; J1652; J1815; J2185; J2248; J2250; J2543; J2704; J7060; P9047